=== PATIENT | male | born 1940 | race Caucasian/White ===

== ENCOUNTER 2020-11-25 16:47 | Emergency (ER) | payer MEDICARE ==
[~2020-11-25] VITALS: Ht 165.1 cm; Wt 54.4 kg
[2020-11-25 16:58] VITALS: BP 130/69
--- NOTE | 2020-11-25 17:07 | NUR ---
NASAL PACKING REPLACED BY DR MCCLELLAND,TOLERATED WELL
== END 2020-11-25 17:15 | disposition home or self-care (01) ==
LOC: ER 16:58
DX: R04.0 Epistaxis (principal); I10 Essential (primary) hypertension; Z98.890 Other specified postprocedural states; Z60.2 Problems related to living alone
CPT/HCPCS: 30901; 99284; A4217

== ENCOUNTER 2020-11-26 17:49 | Emergency (ER) | payer MEDICARE ==
[~2020-11-26] VITALS: Ht 165.1 cm; Wt 59.0 kg
[2020-11-26 18:01] VITALS: BP 141/83
--- NOTE | 2020-11-26 18:59 | NUR ---
Patient discharged to home in stable condition. Written and verbal after care instructions given. Patient verbalizes understanding of instruction.
== END 2020-11-26 18:59 | disposition home or self-care (01) ==
LOC: ER 17:56
DX: R04.0 Epistaxis (principal); I10 Essential (primary) hypertension; Z95.5 Presence of coronary angioplasty implant and graft; Z98.890 Other specified postprocedural states; Z60.2 Problems related to living alone

== ENCOUNTER 2021-01-25 20:03 | Emergency (ER) | payer MEDICARE ==
[~2021-01-25] VITALS: Ht 165.1 cm; Wt 56.7 kg
[2021-01-25 22:21] VITALS: BP 133/80
== END 2021-01-25 22:21 | disposition home or self-care (01) ==
LOC: ER 20:07
DX: S00.03XA Contusion of scalp, initial encounter (principal); S00.83XA Contusion of other part of head, initial encounter; S00.212A Abrasion of left eyelid and periocular area, initial encounter; I10 Essential (primary) hypertension; Z95.2 Presence of prosthetic heart valve; Z60.2 Problems related to living alone; W18.09XA Striking against other object with subsequent fall, initial encounter; Y93.89 Activity, other specified; Y92.89 Other specified places as the place of occurrence of the external cause; Y99.8 Other external cause status
CPT/HCPCS: 70450; 72125; 73564; 93005; 99285; L0172

== ENCOUNTER 2021-08-09 15:23 | Emergency (ER) | payer MEDICARE ==
[~2021-08-09] VITALS: Ht 165.1 cm; Wt 51.7 kg
--- NOTE | 2021-08-09 15:35 | NUR ---
BIB SELF C/O HEAD LAC AND FOREHEAD ABRASION S/P TRIP AND FALL. PT AAOX3, VSS. RR EVEN & UNLABORED. DENIES CP, SOB, DIZZINESS, N/V AT THIS TIME. AWAITING EVAL BY ULYSSES. WILL CONT TO MONITOR.
--- NOTE | 2021-08-09 15:37 | NUR ---
DR. AHUJA AT BS FOR MARCOAL.
--- NOTE | 2021-08-09 16:15 | NUR ---
PT BACK FROM CT VIA [facility].
--- NOTE | 2021-08-09 17:07 | NUR ---
CALLED [facility] FOR A READ.
--- NOTE | 2021-08-09 17:48 | NUR ---
Patient discharged to home in stable condition. Written and verbal after care instructions given. Patient verbalizes understanding of instruction. Patient ambulatory with a steady gait.
[2021-08-09 17:51] VITALS: BP 132/67
== END 2021-08-09 17:52 | disposition home or self-care (01) ==
LOC: ER 15:26
DX: S01.81XA Laceration without foreign body of other part of head, initial encounter (principal); I10 Essential (primary) hypertension; E78.5 Hyperlipidemia, unspecified; Z98.890 Other specified postprocedural states; Z60.2 Problems related to living alone; W01.0XXA Fall on same level from slipping, tripping and stumbling without subsequent striking against object, initial encounter; Y93.89 Activity, other specified; Y92.89 Other specified places as the place of occurrence of the external cause; Y99.8 Other external cause status
CPT/HCPCS: 70450-TC; 70486-TC; 72125-TC

== ENCOUNTER 2021-09-08 07:24 | Emergency (ER) | payer MEDICARE ==
[~2021-09-08] VITALS: Ht 165.1 cm; Wt 50.8 kg
--- NOTE | 2021-09-08 07:39 | NUR ---
DR VELAZQUEZ AT BEDSIDE FOR EVAL
--- NOTE | 2021-09-08 07:50 | NUR ---
SALINE LOCK ESTABLISHED BLOOD DRAWN AND SENT TO LAB
[2021-09-08 08:08] LABS: BASOPHILS % (AUTO) 0.2 % (0.0-2.0); EOSINOPHILS % (AUTO) 0.1 % (0.0-6.0); HEMATOCRIT 39 % (39-51); LYMPHOCYTES # (AUTO) 0.5 K/uL (0.8-4.8); LYMPHOCYTES % (AUTO) 4.3 % (20.0-44.0); MEAN CORPUSCULAR HGB CONC 33 g/dl (31.0-36.0); MEAN CORPUSCULAR VOLUME 94 fL (80-96); MONOCYTES # (AUTO) 0.6 K/uL (0.1-1.30); MONOCYTES % (AUTO) 5.1 % (2.0-12.0); NEUTROPHILS # (AUTO) 9.9 K/uL (1.8-8.9); NEUTROPHILS % (AUTO) 90.3 % (43.0-81.0); PLATELET COUNT (AUTO) 276 K/uL (150-450); RED BLOOD CELL COUNT(AUTO) 4.18 MIL/uL (4.5-6.0)
[2021-09-08 08:21] LABS: BILIRUBIN,DIRECT 0.1 mg/dL (0.0-0.2); BILIRUBIN,TOTAL 0.5 mg/dL (0.2-1.0); CALCIUM, SERUM 9.2 mg/dL (8.5-10.1); POTASSIUM 3.7 mmol/L (3.5-5.1)
[2021-09-08] MEDS ORDERED: IV NS 0.9% 250 ML IV ONE ×2 (08:44→09:59)
[2021-09-08] MEDS ORDERED: CT SWABBABLE VALVE TRANS SET 1 EA INFUS.SET MC ONE ×2 (08:44→09:59)
[2021-09-08] MEDS ORDERED: IOHEXOL-350 100 ML VIAL IV ONE (08:44)
--- NOTE | 2021-09-08 08:44 | NUR ---
TAKEN TO CT
[2021-09-08] MEDS ORDERED: LACTULOSE 10 G/15 ML UDC (PYXIS) PO ONE (09:30)
[2021-09-08] MEDS ORDERED: LACTULOSE 10 G/15 ML UDC (PYXIS) ONE (09:36)
[2021-09-08] MEDS ORDERED: IOHEXOL-300 100 ML VIAL IV ONE (09:59)
--- NOTE | 2021-09-08 10:51 | NUR ---
TAKEN TO CT
[2021-09-08] MEDS ORDERED: DOCU-141 PO (11:52)
--- NOTE | 2021-09-08 12:02 | NUR ---
IV removed. Catheter intact and site benign. Pressure and 4x4 applied to site. No bleeding noted.Patient discharged to home in stable condition. Written and verbal after care instructions given. Patient verbalizes understanding of instruction.
[2021-09-08 12:16] VITALS: BP 132/76
== END 2021-09-08 12:17 | disposition home or self-care (01) ==
LOC: ER 07:26
DX: R91.8 Other nonspecific abnormal finding of lung field (principal); K59.00 Constipation, unspecified; I10 Essential (primary) hypertension; Z98.890 Other specified postprocedural states; Z60.2 Problems related to living alone
CPT/HCPCS: 36415; 71270; 74177; 80048; 80076; 83690; 85025; 99285; J7050 ×2; Q9967 ×2

== ENCOUNTER 2022-01-02 17:46 | Emergency (ER) | payer MEDICARE ==
[~2022-01-02] VITALS: Ht 167.6 cm; Wt 54.0 kg
[~2022-01-02 17:46] MED LIST: DOCU-141 PO
[2022-01-02] MEDS ORDERED: LOSA50TA39 PO (18:01)
[2022-01-02] MEDS ORDERED: LOVA40TA2 PO (18:01)
[2022-01-02] MEDS ORDERED: HYDR-4209 PO (20:03)
[2022-01-02] MEDS ORDERED: IBUP-1957 PO (20:03)
--- NOTE | 2022-01-02 20:33 | NUR ---
PATIENT DISCHARGED INSTRUCTIONS GIVEN. DC IN STABLE CONDITION, PT AMBULATED TO WAITING ROOM
[2022-01-02 20:35] VITALS: BP 138/66
== END 2022-01-02 20:36 | disposition home or self-care (01) ==
LOC: ER 18:46
DX: S22.20XA Unspecified fracture of sternum, initial encounter for closed fracture (principal); I10 Essential (primary) hypertension; R26.81 Unsteadiness on feet; Z95.4 Presence of other heart-valve replacement; Z79.1 Long term (current) use of non-steroidal anti-inflammatories (NSAID); Z79.891 Long term (current) use of opiate analgesic; Z79.899 Other long term (current) drug therapy; Z60.2 Problems related to living alone; V89.2XXA Person injured in unspecified motor-vehicle accident, traffic, initial encounter; Y93.89 Activity, other specified; Y92.89 Other specified places as the place of occurrence of the external cause; Y99.8 Other external cause status
CPT/HCPCS: 71250-TC

== ENCOUNTER 2022-02-15 16:25 | Emergency (ER) | payer MEDICARE ==
[~2022-02-15] VITALS: Ht 170.2 cm; Wt 55.8 kg
[~2022-02-15 16:25] MED LIST changes: +HYDR-4209 PO; +IBUP-1957 PO; +LOSA50TA39 PO; +LOVA40TA2 PO
[2022-02-15 16:34] VITALS: BP 118/67
--- NOTE | 2022-02-15 17:02 | NUR ---
AT BEDSIDE FOR EVAL.
--- NOTE | 2022-02-15 17:21 | NUR ---
ARRANGED BLS TRANSPORT TO HOME. SPOKE WITH [facility] AND ETA IS 60 MIN.
--- NOTE | 2022-02-15 18:35 | NUR ---
PICKED UP BY TRANSPORT IN STABLE CONDITION
== END 2022-02-15 18:37 | disposition home or self-care (01) ==
LOC: ER 16:27
DX: S61.411A Laceration without foreign body of right hand, initial encounter (principal); S00.03XA Contusion of scalp, initial encounter; I10 Essential (primary) hypertension; Z95.4 Presence of other heart-valve replacement; Z79.891 Long term (current) use of opiate analgesic; Z79.1 Long term (current) use of non-steroidal anti-inflammatories (NSAID); Z79.899 Other long term (current) drug therapy; W01.0XXA Fall on same level from slipping, tripping and stumbling without subsequent striking against object, initial encounter; Y93.89 Activity, other specified; Y92.89 Other specified places as the place of occurrence of the external cause; Y99.8 Other external cause status

== ENCOUNTER 2022-02-18 18:58 | Inpatient (IN) | payer MEDICARE ==
[~2022-02-18] VITALS: Ht 170.2 cm; Wt 51.3 kg
--- NOTE | 2022-02-18 19:10 | NUR ---
TO ER BED 2. BIBRA FROM HOME C/O L ARM PAIN POST FALL X YESTERDAY MORNING. PT WAS UNABLE TO CALL FOR HELP, LIVES ALONE. NEIGHBOR FOUND HIM ON THE FLOOR. DIFORMITY NOTED ON L ARM. PT IS ABLE TO MOVE ALL FINGERS, DENIED NUMBNESS. AWAITING MD HUERTA
--- NOTE | 2022-02-18 19:38 | NUR ---
PT TAKEN FOR XRAY
--- NOTE | 2022-02-18 19:58 | NUR ---
COVID ANTIGEN SWAB COLLECTED AND SENT TO LAB
--- NOTE | 2022-02-18 20:58 | NUR ---
CALLED [facility] PAGED DR RUIZ FOR ADMISSION
--- NOTE | 2022-02-18 21:39 | NUR ---
DR. LAKE SPEAKING TO DR. RUIZ VIA PHONE CALL
--- NOTE | 2022-02-18 21:45 | NUR ---
CALLED DR HOLGUIN FOR ORTHO CONSULT
--- NOTE | 2022-02-18 22:11 | NUR ---
LAB AT BEDSIDE
--- NOTE | 2022-02-18 22:15 | NUR ---
IV LINE ESTABLISHED RAC 20G
--- NOTE | 2022-02-18 22:16 | NUR ---
MS 310-2
[2022-02-18 22:20] LABS: BASOPHILS % (AUTO) 0.1 % (0.0-2.0); EOSINOPHILS % (AUTO) 0.1 % (0.0-6.0); HEMATOCRIT 39 % (39-51); LYMPHOCYTES # (AUTO) 0.4 K/uL (0.8-4.8); LYMPHOCYTES % (AUTO) 6.8 % (20.0-44.0); MEAN CORPUSCULAR HGB CONC 33 g/dl (31.0-36.0); MEAN CORPUSCULAR VOLUME 91 fL (80-96); MONOCYTES # (AUTO) 0.3 K/uL (0.1-1.30); MONOCYTES % (AUTO) 5.1 % (2.0-12.0); NEUTROPHILS # (AUTO) 5.1 K/uL (1.8-8.9); NEUTROPHILS % (AUTO) 87.9 % (43.0-81.0); PLATELET COUNT (AUTO) 227 K/uL (150-450); RED BLOOD CELL COUNT(AUTO) 4.27 MIL/uL (4.5-6.0); WHITE BLOOD COUNT (AUTO) 5.7 K/uL (4.3-11.0)
--- NOTE | 2022-02-18 22:40 | NUR ---
REPORT GIVEN TO LEO ALFARO FOR MIGUEL
[2022-02-18 22:59] LABS: CALCIUM, SERUM 9.1 mg/dL (8.5-10.1); CARBON DIOXIDE 30 mmol/L (21-32); CHLORIDE 103 mmol/L (98-107); CREATININE 0.6 mg/dL (0.6-1.3); GLUCOSE 150 mg/dL (74-106); POTASSIUM 3.3 mmol/L (3.5-5.1); SODIUM SERUM 138 mmol/L (136-145); UREA NITROGEN, BLOOD 22 mg/dL (7-18)
[2022-02-18] MEDS ORDERED: ONDANSETRON HCL/PF 4 MG/2 ML VIAL IVP PRN (23:30)
[2022-02-18] MEDS ORDERED: ACETAMINOPHEN 325 MG TABLET PO PRN (23:30)
[2022-02-18] MEDS ORDERED: Z GUARD REMEDY 4 OZ OINT TP PRN (23:30)
[2022-02-18] MEDS ORDERED: MAG HYDROX/AL HYDROX/SIMETH 30 ML UDC PO PRN (23:30)
[2022-02-18] MEDS ORDERED: ZOLPIDEM TARTRATE 5 MG TABLET PO PRN (23:30)
[2022-02-18] MEDS ORDERED: MORPHINE SULFATE INJ 2 MG/ML DISP.SYRIN IV PRN (23:30)
[2022-02-18] MEDS ORDERED: MAGNESIUM HYDROXIDE 30 ML UDC PO PRN (23:30)
[2022-02-18] MEDS ORDERED: HYDROCODONE/APAP 5/325MG TABLET PO PRN (23:30)
[2022-02-18] MEDS ORDERED: IV NS 0.9% 1,000 ML IV ONE (23:30)
[2022-02-18] MEDS ORDERED: POTASSIUM CL. PREMIX PERIPHER. 50 ML ONE (23:32)
[2022-02-19 01:00] VITALS: BP 136/70
[2022-02-19] MEDS: POTASSIUM CL. PREMIX PERIPHER. 50 ML IV SCH ×4 (01:19→05:04)
--- NOTE | 2022-02-19 02:00 | NUR ---
MS RN OPENING NOTES [facility] A/O X4 WITH PERIODS OF FORGETFULNESS. NO SOB OR NOTED. TOLERATING ROOM AIR WELL. ABLE TO VERBALIZE NEEDS. V/S STABLE. LEFT SHOULDER SLING NOTED. HAS RIGHT AC IV ACCESS #20G, INTACT AND PATENT. SKIN ASSESSMENT DONE AND PHOTOS TAKEN. BELONGINGS ACCOUNTED FOR. SAFETY MEASURES IN PLACE: BED LOW AND LOCKED, SIDE RAILS UP X2, CALL LIGHT WITHIN REACH.
[2022-02-19 03:09] LABS: IRON, SERUM 31 ug/dl (50-175); TOTAL IRON BINDING CAPACITY 224 ug/dl (250-450)
[2022-02-19 03:23] LABS: FERRITIN 213 ng/mL (8-388)
--- NOTE | 2022-02-19 06:46 | NUR ---
MS RN CLOSING NOTES PATIENT LYING IN BED, EYES CLOSED. EASY TO AROUSE. A/O X4. STABLE ON ROOM AIR. NO APPARENT DISTRESS NOTED. LEFT SHOULDER SWELLING NOTED. HAS RIGHT AC IV ACCESS #20G WITH NS RUNNING AT 100 ML/HR. VOIDED ONCE USING URINAL BOTTLE. NO BM DURING SHIFT. WOUND CONSULT ORDERED. SURGERY CONSENT SIGNED. SAFETY MEASURES IN PLACE: BED LOW AND LOCKED, SIDE RAILS UP X2, CALL LIGHT WITHIN REACH.
[2022-02-19 08:00] VITALS: BP 138/73
--- NOTE | 2022-02-19 08:25 | NUR ---
RN OPENING NOTE PATIENT RECEIVED IN BED, AO X 4, ABLE TO RESPONDS ALL STIMULI. IN NO ACUTE DISTRESS NOTED. RESPIRATORY EVEN AND UNLABORED ON ROOM AIR. SKIN IS WARM TO TOUCH, KEEP CLEAN/DRY, INTACT IV SITE. PATIENT KEPT NPO FOR LEFT HIP SURGERY TODAY. ELEVATED HOB FOR ENSURE AIRWAY AND ASPIRATION PRECAUTION, ALSO LOWEST POSITION OF THE BED, S/R UP X 3 FOR SAFETY. ALL SAFETY PRECAUTION APPLIED. CALL LIGHT WITHIN REACH, WILL CONTINUE TO MONITOR.
[2022-02-19] MEDS: LOSARTAN POTASSIUM 50 MG TABLET PO SCH ×2 (09:00→17:00)
[2022-02-19] MEDS: IBUPROFEN 400 MG TABLET PO SCH ×3 (09:00→17:22)
[2022-02-19] MEDS: DOCUSATE SODIUM 100 MG CAPSULE PO SCH ×2 (09:00→17:22)
[2022-02-19] MEDS ORDERED: IBUPROFEN 800 MG TABLET PO SCH (09:00)
[2022-02-19] MEDS: ATORVASTATIN 10 MG TABLET PO SCH (09:00)
[2022-02-19 11:56] LABS: BASOPHILS % (AUTO) 0.4 % (0.0-2.0); EOSINOPHILS % (AUTO) 1.6 % (0.0-6.0); HEMATOCRIT 33 % (39-51); HEMOGLOBIN 10.7 g/dL (13.5-17.5); LYMPHOCYTES # (AUTO) 0.6 K/uL (0.8-4.8); LYMPHOCYTES % (AUTO) 19.2 % (20.0-44.0); MEAN CORPUSCULAR HGB CONC 32 g/dl (31.0-36.0); MEAN CORPUSCULAR VOLUME 93 fL (80-96); MONOCYTES # (AUTO) 0.2 K/uL (0.1-1.30); MONOCYTES % (AUTO) 7.8 % (2.0-12.0); NEUTROPHILS # (AUTO) 2.3 K/uL (1.8-8.9); PLATELET COUNT (AUTO) 176 K/uL (150-450); RED BLOOD CELL COUNT(AUTO) 3.57 MIL/uL (4.5-6.0); WHITE BLOOD COUNT (AUTO) 3.2 K/uL (4.3-11.0)
[2022-02-19] MEDS ORDERED: FENTANYL PF 250MCG/5ML AMPUL ONE (13:01)
[2022-02-19] MEDS ORDERED: ROCURONIUM BROMIDE 50 MG/5 ML ONE (13:02)
[2022-02-19] MEDS ORDERED: POLYMYXIN B SULFATE 500,000 UNITS ONE (13:26)
[2022-02-19] MEDS ORDERED: BUPIVACAINE 0.5 % PF 150 MG/30 ML VIAL ONE (13:26)
[2022-02-19 13:59] LABS: CALCIUM, SERUM 8.5 mg/dL (8.5-10.1); CARBON DIOXIDE 26 mmol/L (21-32); CHLORIDE 107 mmol/L (98-107); CREATININE 0.4 mg/dL (0.6-1.3); GLUCOSE 77 mg/dL (74-106); MAGNESIUM 2.2 mg/dL (1.8-2.4); PHOSPHORUS 2.6 mg/dL (2.5-4.9); POTASSIUM 3.6 mmol/L (3.5-5.1); SODIUM SERUM 138 mmol/L (136-145); UREA NITROGEN, BLOOD 17 mg/dL (7-18)
[2022-02-19] MEDS ORDERED: BUPIVACAINE 0.25% 75 MG/30 ML VIAL ONE (14:22)
[2022-02-19 14:52] LABS: CHOLESTEROL 127 mg/dL (<200); HDL CHOLESTEROL 77 mg/dL (40-60); LDL 32 mg/dL (0-99); TRIGLYCERIDES 54 mg/dL (30-150)
[2022-02-19] MEDS ORDERED: FENTANYL PF 100MCG/2ML AMPUL ONE (15:53)
[2022-02-19 16:45] VITALS: BP 123/76
--- NOTE | 2022-02-19 16:45 | NUR ---
PATIENT BACK FROM LEFT SHOULDER PROCEDURE, REPORTED BY OKSANA/RN. IN NO ACUTE DISTRESS OBSERVED. REMAINS AO X 4, DUNCAN CATH CONNECTING TO URINE BAG. VITAL SIGNS ARE ALL STABLE, DOCUMENTED IN THE INTERVENTION.
[2022-02-19 17:00] VITALS: BP 116/82
[2022-02-19 17:30] VITALS: BP 136/57
--- NOTE | 2022-02-19 18:39 | NUR ---
RN CLOSE NOTE PATIENT IN BED, S/P LEFT SHOULDER PROCEDURE, IN NO ACUTE DISTRESS OBSERVED. RESPIRATION EVEN AND UNLABORED ON ROOM AIR. SKIN IS WARM TO TOUCH KEEP CLEAN//DRY, INTACT IV SITE. KEPT ELEVATED HOB FOR ENSURE AIRWAY AND ASPIRATION PRECAUTION. ALSO LOWEST POSITION OF THE BED FOR SAFETY. CALL LIGHT WITHIN REACH, WILL CONTINUE TO MONITOR.
--- NOTE | 2022-02-19 19:45 | NUR ---
MS ANGELINA OPENING NOTES RECEIVED PATIENT IN BED, HOB ELEVATED WHILE EATING HIS DINNER. A/O X4 WITH PERIODS OF CONFUSION. BREATHING EVEN AND UNLABORED. NO C/O PAIN AT THIS TIME. S/P LEFT SHOULDER ORIF WITH INTRAMEDULLARY NAIL. DRESSING DRY AND INTACT. HAS RIGHT AC IV ACCESS #20G SALINE LOCK. INTACT, PATENT AND FLUSHING. HAS INDWELLING DUNCAN CATHETER DRAINING CLEAR AND YELLOW URINE. SAFETY PRECAUTIONS IN PLACE. WILL CONTINUE PLAN OF CARE. Addendum: 02/20/22 at 0132 by April FABIÁN ALFARO NO F/C
[2022-02-19 20:00] VITALS: BP 113/64
[2022-02-19] MEDS: ENOXAPARIN SODIUM 40 MG/0.4 ML DISP.SYRIN SQ SCH (21:39)
[2022-02-19] MEDS: ANCEF 1 GM/50 ML D5W IV SCH ×2 (21:40)
[2022-02-20] MEDS: ANCEF 1 GM/50 ML D5W IV SCH ×2 (05:16)
--- NOTE | 2022-02-20 06:20 | NUR ---
MS RN CLOSING NOTES PATIENT LYING IN BED, EYES CLOSED. RESPONSIVE TO VERBAL AND TACTILE STIMULI. A/O X4 WITH PERIODS OF FORGETFULNESS. NO C/O PAIN AT THIS TIME. NO APPARENT DISTRESS NOTED. MOOD IS PLEASANT. LEFT SHOULDER DRESSING DRY AND INTACT. HAS RIGHT AC IV ACCESS #20G SALINE LOCK. INTACT, PATENT AND FLUSHING. PERINEAL CARE RENDERED. SAFETY PRECAUTIONS IN PLACE: BED LOCK AND LOW, SIDE RAILS UP X2, CALL LIGHT WITHIN REACH.
[2022-02-20 06:43] LABS: BASOPHILS % (AUTO) 0.1 % (0.0-2.0); EOSINOPHILS % (AUTO) 0.9 % (0.0-6.0); HEMATOCRIT 27 % (39-51); HEMOGLOBIN 9.3 g/dL (13.5-17.5); LYMPHOCYTES # (AUTO) 0.4 K/uL (0.8-4.8); LYMPHOCYTES % (AUTO) 13.1 % (20.0-44.0); MEAN CORPUSCULAR HGB CONC 34 g/dl (31.0-36.0); MEAN CORPUSCULAR VOLUME 91 fL (80-96); MONOCYTES # (AUTO) 0.3 K/uL (0.1-1.30); MONOCYTES % (AUTO) 8.1 % (2.0-12.0); NEUTROPHILS # (AUTO) 2.5 K/uL (1.8-8.9); NEUTROPHILS % (AUTO) 77.8 % (43.0-81.0); PLATELET COUNT (AUTO) 164 K/uL (150-450); RED BLOOD CELL COUNT(AUTO) 3.01 MIL/uL (4.5-6.0); WHITE BLOOD COUNT (AUTO) 3.2 K/uL (4.3-11.0)
[2022-02-20 06:59] LABS: ALBUMIN 1.9 g/dL (3.4-5.0); BILIRUBIN,TOTAL 0.3 mg/dL (0.2-1.0); CALCIUM, SERUM 8.1 mg/dL (8.5-10.1); CREATININE 0.7 mg/dL (0.6-1.3); MAGNESIUM 1.9 mg/dL (1.8-2.4); PHOSPHORUS 2.5 mg/dL (2.5-4.9); POTASSIUM 3.6 mmol/L (3.5-5.1)
--- NOTE | 2022-02-20 07:15 | NUR ---
MS RN OPENING NOTES RECEIVED PATIENT LYING IN BED, AWAKE AND RESPONSIVE TO VERBAL AND TACTILE STIMULI. MOOD IS PLEASANT. A/O X4. PATIENT ON ROOM AIR WITH EQUAL AND UNLABORED BREATHING. NO S/S OF DISTRESS NOTED. NO C/O PAIN AT THIS TIME. LEFT SHOULDER DRESSING DRY AND INTACT. HAS RIGHT AC IV ACCESS #20G SALINE LOCK; CLEAR PATENT AND INTACT. SAFETY MEASURES ENSURED WITH BED LOCKED AND LOWEST POSITION, SIDE RAILS UP X2, BED ALARM ON AND CALL LIGHT WITHIN REACH. WILL CONTINUE TO MONITOR.
[2022-02-20 08:41] VITALS: BP 102/64
[2022-02-20] MEDS: DOCUSATE SODIUM 100 MG CAPSULE PO SCH ×2 (08:47→17:19)
[2022-02-20] MEDS: ATORVASTATIN 10 MG TABLET PO SCH (08:47)
[2022-02-20] MEDS: IBUPROFEN 400 MG TABLET PO SCH ×3 (08:47→17:18)
[2022-02-20] MEDS: LOSARTAN POTASSIUM 50 MG TABLET PO SCH ×2 (08:47→17:19)
--- NOTE | 2022-02-20 10:49 | NUR ---
WOUND CARE CONSULT: PT PRESENTS VERY THIN AND BONY WITH SACRAL AND LOWER BACK DEEP TISSUE INJURIES WELL SKIN TEAR TO LEFT ELBOW WITH DISCOLORATION AND SWELLING TO LEFT UPPER EXTREMITY, PRESENT ON ADMISSION. SURGICAL DRESSING NOTED TO LEFT SHOULDER (DRY AND INTACT). RECOMMENDATIONS MADE FOR SKIN PROTECTION AND WOUND CARE. DISCUSSED WITH NURSING STAFF. DR LO CALLED FOR PLASTIC SURGERY CONSULT OF WOUNDS. IN AGREEMENT WITH PLAN OF CARE. Addendum: 02/20/22 at 1051 by TRUONG ELIZALDE WNDNU Amended: Links added.
--- NOTE | 2022-02-20 14:57 | NUR ---
SS Consult: SS consult for fall from home. Pt. Is a 81-year-old White male who demonstrates adequate insight to the reason for hospitalization. Per pt., he presented himself to hospital for fall. Pt. was oriented x4, alert, and cooperative. During interview, pt. was capable of following directions, made appropriate eye-contact, and appeared unkempt. Pt.s speech was at a normal rate and pt.s mood was elevated. Pt. reported no hx of mental health, substance abuse, suicidal ideation, or homicidal ideation. Pt. denies auditory hallucinations, visual hallucinations, paranoia, or delusions. SW explored pt.s living situation. Per pt., he lives alone [[address] [place] [address], tele:[phone]]. Per pt., he has no family, friends, or a caregiver. Pt. stated that he is independent. SW explored pt.s recent fall. Pt. reported he does not recall how the fall happened. Pt. remembered being on the floor and could not get up. He said he was on the floor for the whole day and could not pull himself up. He finally got to the front door and yelled for help, his neighbor saw and called ambulance. Pt. has hx of falls. Plan: SW provided available resources and pt. accepted. SW made an APS report for self-neglect. APS Intake #[id number] Resources Provided: ABUSE PREVENTION: ELDER ABUSE HOTLINE (14/06) ADULT PROTECTIVE SERVICES HOTLINE LONG-TERM CARE [facility] Region AREA ON AGING (HOTLINE) ADULT DAY HEALTH CARE CARE CENTERS: Private pay or Medi-farhat funded adult day care [place] [facility] , [facility] , [facility] Adult Care Center , [facility] Adult Day Health Care , [facility] Adult Day Health Care , Located Within [facility] Adult Daycare Center , Reliance ONE Generation Center , [facility] Adult [facility] , [place] ALZHEIMERS DISEASE/DEMENTIA: Alzheimers Association Helpline [facility] Chapter www.alz.org/[facility] Department of Aging www.lacity.org Family Caregiver [place] www.caregiver.org [place] Caregiver Resources Center/Family Support www.losangesaint elizabeth fort thomas.org CANCER RESOURCES: [place] Cancer Society www.cancer.org Cancer Support Community www.CancerSupportVvsb.org: CancerCare www.cancercare.org [facility] [place] Cancer Support Center www.[facility].org [facility] ASSOCIATIONS: AARP www.aarp.org ALS Association (ask for Lucretia) www.als.org [place] Diabetes Association www.diabetes.org [place] Heart Association www.heart.org Croat[place] Lung Association www.lungusa.org Croat[place] Parkinson Disease Association www.apdaparkinson.org Croatian Tim[place]on , www.redcross.org Arthritis Foundation www.arthritis.org Crohns & Colitis Foundation of Croatian www.ccfa.org/chapters/tessy National Multiple Sclerosis Society www.nationalmssociety.org Myasthenia Gravis Foundation www.myasthenia-ca.org National Stroke Association www.stroke.org CONSERVATORSHIP & GUARDIANSHIP: AARP Aretha [place] Legal Services Center for Health Care Rights Eldercare Information and Referral Youth Services Specialist Foundation [facility]: [facility] Bar Referral Service [facility] Legal Services Office of the Public Guardian [place] EYESIGHT DISORDER RESOURCES: [place]ian Macular Degeneration Foundation [facility] www.[facility].org GRIEF AND BEREAVEMENT RESOURCES: The [place] , [facility] Connection , [facility] Bereavement Center , [place] HEARING DISORDER RESOURCES: [place] Telephone Access Program Deaf and Disabled Telecommunications Program www.ddtp.[facility].ca.gov HearRx Hearing Centers ([place]) Better Hearing Systems , [place] GLAD ([facility] Agency on Deafness) V/ TTY; Drive Thru Order Taker , [facility] Hearing [facility] -low income hearing aid assistance www.[facility] regional hospitalfoundation.org [place] Hearing Care , Tesfaye HELP AT HOME CAREGIVER SUPPORT: In Home Support Services (Must have Medi-Farhat to be eligible) *Ask for a list of agencies that provide services to assist with care in the home. Local Senior Centers also have listings of care providers. HOME SAFETY MODIFICATIONS AND EQUIPMENT: Senior centers have additional referrals. [place] Housing and Community Investment Dept. Handyworker Program (low income) or Visit http://hcidla.[facility].org/yve-zggtei-hx for more information National Seating and Mobility and/or ; Forever Active www.foreveractivemed.Smarkets Stay Home Safe www.Stayhomesafe.Smarkets LIFE ALERT RESPONSE SYSTEM: CHARMS PPEC Lifeline Services 272-247-7002 www. DataContact Life Alert 832-631-4054 www.InvestLab.Smarkets Life Station 449-712-5165 www.CardMunchation.Smarkets Safe Return 099-612-1186 www.alz.or/safereturn Cell Phones for Seniors www.eyeOS MEALS AND FOOD PROGRAMS: Tiffany Meals on Wheels [phone] [place] Meals on Wheels [phone] [facility] [phone] [place] to the Homebound [phone] [place] to the Homebound [phone] [facility] to the Homebound [phone] [facility] to the Homebound [phone] [facility] Petar Yan [phone] [facility] [phone] ONE Generation [phone] [facility] [phone] [facility] [phone] Meals on Wheels [phone] For all ages: $6.85/ meal w side. Delivered M-F from 10 am-1pm. Application and payment is done over the phone. Frozen meals available for weekends. Emergency Food Coalition [phone] [facility] Wreath Machine Tender [phone] [facility] [phone] [facility]- Brown bag lunches [phone] [facility] [phone] MEAL/GROCERY DELIVERY PROGRAMS: Randy [facility] Gourmet Meals [phone]- [facility] [phone]- [facility] Magic Kitchen [phone] Moms Meals [phone] (ask Robles for Discount Select grocery stores may provide delivery. MEDICAL INSURANCE SUPPORT SERVICES: Center for Health Care Rights [phone] Health Insurance Counseling/Advocacy Programs (HICAP)-Must have Medicare. Offers counseling for Medi-Farhat eligibility [phone] Department Public Wreath Machine Tender [phone] www.[facility].ca.gov Medicare 500-479-7308 www.socialsecurity.org Social Security [phone] SENIOR ACTIVITY PROGRAMS: *Contact a local senior center, adult school, recreation facility or community [facility] for education, fitness, recreation, and social programs. Aquatic Therapy and Adapted Exercise programs through [facility] [phone] Encore at [facility] [phone] www.[facility]/encore U- Senior Friends [phone] Adeline Senior Programs [phone] www.oasisnet.org Suddenly 65 www.Millennium Laboratories.Smarkets SENIOR CENTERS: [facility] [phone] [facility] [place] [phone] [facility] [phone] [facility] [phone] [facility] [phone] [facility] [phone] [facility] [phone] [facility] [phone] One Generation, [facility] [phone] [facility] [phone] [facility] [phone] [facility] [phone] [facility] [phone] TRANSPORTATION: Local [facility] Centers may have applications for transportation programs and additional resources. ACCESS Services [phone] Transportation for seniors and disabled persons 7 days a week requiring 254 hr. advance reservation. Must apply and register for program alexi eligible. CITY RIDE [phone] or [phone] Transportation for seniors and persons with ADA card/metro disabled card in the [facility] [place]. M-F only. Must register for services. ONE GENERATION [phone] Serves 65 years + in conjunction with city ride program. Must be registered with both programs. A to B Transport [phone] Provides wheelchair/gurney van service. Adult Medical Transport [phone] Accepts [facility] with prior authorization. Care Van [phone] Provides wheelchair Transport. [facility] Wide Transportation [phone] Provides gurney service Gentle Care [phone] Gurney Transport. All Town Transportation [phone] wheelchair & gurney transport D Transportation [phone] wheelchair & gurney transport [place] Non-Emergency Transport [phone] wheelchair & gurney transport Independent Living Center [phone] Short Term Transportation primarily for adults with disabilities on social security income. Nominal fee may apply and a reservation is required. City Cab [phone] or [phone] [facility] [phone] [place] [address] Referral Services -[phone] For additional programs & services VETERANS RESOURCES: Submissions for Aid and Attendance should be done directly to Federal VA office locatd at : [address] [address] X110 National Caregiver Support Line [phone] Farhat L[facility] Veterans Services Field Office [phone] [place] Department of Affairs [phone] Pension Information [phone]
[2022-02-20] MEDS: ENSURE ENLIVE CHOC 237 ML CAN PO SCH (17:00)
--- NOTE | 2022-02-20 18:46 | NUR ---
MS RN CLOSING NOTES PATIENT LYING IN BED, AWAKE AND RESPONSIVE TO VERBAL AND TACTILE STIMULI. MOOD IS PLEASANT. A/O X4. PATIENT ON ROOM AIR WITH EQUAL AND UNLABORED BREATHING. NO S/S OF DISTRESS NOTED. NO C/O PAIN AT THIS TIME. LEFT SHOULDER DRESSING DRY AND INTACT. HAS RIGHT AC IV ACCESS #20G SALINE LOCK; CLEAR PATENT AND INTACT. WILL ENDORSED TO RETAIL SALES SPECIALIST FOR CONTINUITY OF CARE.
--- NOTE | 2022-02-20 19:20 | NUR ---
MS RN OPENING NOTES PATIENT LYING IN BED, AWAKE AND RESPONSIVE TO VERBAL AND TACTILE STIMULI. MOOD IS PLEASANT. A/O X4. PATIENT ON ROOM AIR WITH EQUAL AND UNLABORED BREATHING. NO S/S OF DISTRESS NOTED. NO C/O PAIN AT THIS TIME. LEFT SHOULDER DRESSING DRY AND INTACT. HAS RIGHT AC IV ACCESS #20G SALINE LOCK; CLEAR PATENT AND INTACT. WILL CONTINUE TO MONITOR.
[2022-02-20 19:56] VITALS: BP 104/48
[2022-02-20] MEDS: ENOXAPARIN SODIUM 40 MG/0.4 ML DISP.SYRIN SQ SCH (20:45)
[2022-02-21 06:50] LABS: BASOPHILS % (AUTO) 0.1 % (0.0-2.0); EOSINOPHILS % (AUTO) 2.1 % (0.0-6.0); HEMATOCRIT 29 % (39-51); LYMPHOCYTES # (AUTO) 0.4 K/uL (0.8-4.8); LYMPHOCYTES % (AUTO) 9.8 % (20.0-44.0); MEAN CORPUSCULAR HGB CONC 34 g/dl (31.0-36.0); MEAN CORPUSCULAR VOLUME 91 fL (80-96); MONOCYTES # (AUTO) 0.3 K/uL (0.1-1.30); MONOCYTES % (AUTO) 7.3 % (2.0-12.0); NEUTROPHILS % (AUTO) 80.7 % (43.0-81.0); PLATELET COUNT (AUTO) 173 K/uL (150-450); RED BLOOD CELL COUNT(AUTO) 3.21 MIL/uL (4.5-6.0); WHITE BLOOD COUNT (AUTO) 3.7 K/uL (4.3-11.0)
--- NOTE | 2022-02-21 07:03 | NUR ---
MS RN CLOSING NOTES PATIENT LYING IN BED, AWAKE AND RESPONSIVE TO VERBAL AND TACTILE STIMULI. MOOD IS PLEASANT. A/O X4. PATIENT ON ROOM AIR WITH EQUAL AND UNLABORED BREATHING. NO S/S OF DISTRESS NOTED. NO C/O PAIN AT THIS TIME. LEFT SHOULDER DRESSING IN PLACE. HAS RIGHT AC IV ACCESS #20G SALINE LOCK; CLEAR PATENT AND INTACT. WILL CONTINUE TO MONITOR.
[2022-02-21 07:24] LABS: CALCIUM, SERUM 8.1 mg/dL (8.5-10.1); CARBON DIOXIDE 25 mmol/L (21-32); CHLORIDE 106 mmol/L (98-107); CREATININE 0.5 mg/dL (0.6-1.3); GLUCOSE 102 mg/dL (74-106); MAGNESIUM 1.9 mg/dL (1.8-2.4); PHOSPHORUS 2.1 mg/dL (2.5-4.9); POTASSIUM 3.9 mmol/L (3.5-5.1); SODIUM SERUM 138 mmol/L (136-145); UREA NITROGEN, BLOOD 18 mg/dL (7-18)
--- NOTE | 2022-02-21 07:39 | NUR ---
MS RN OPENING NOTE RECEIVED PATIENT AWAKE IN BED. A/O X 4, ABLE TO MAKE NEEDS KNOWN. NO S/SX OF DISTRESS NOTED. NO SOB. NO C/O PAIN. BREATHING IS EVEN AND UNLABORED. PT TOLERATING WELL ON ROOM AIR. IV ACCESS R AC #20G PATENT AND INTACT WITH NS RUNNING AT 75MLS/HR. SAFETY MEASURES IN PLACE WITH BED LOCKED IN LOW POSITION. SIDE RAILS UP X2. WILL CONTINUE TO MONITOR PATIENT THROUGHOUT SHIFT.
[2022-02-21 07:51] LABS: ALANINE AMINOTRANSFERASE 30 U/L (12-78); ALKALINE PHOSPHATASE 72 U/L (46-116); ASPARTATE AMINOTRANSFERASE 21 U/L (15-37); BILIRUBIN,TOTAL 0.4 mg/dL (0.2-1.0); TOTAL PROTEIN, SERUM 4.5 g/dL (6.4-8.2)
[2022-02-21 08:00] VITALS: BP 115/58
[2022-02-21] MEDS: LOSARTAN POTASSIUM 50 MG TABLET PO SCH ×2 (08:11→16:47)
[2022-02-21] MEDS: ATORVASTATIN 10 MG TABLET PO SCH (08:12)
[2022-02-21] MEDS: DOCUSATE SODIUM 100 MG CAPSULE PO SCH ×2 (08:12→16:46)
[2022-02-21] MEDS: IBUPROFEN 400 MG TABLET PO SCH ×3 (08:12→16:46)
[2022-02-21] MEDS: ENSURE ENLIVE CHOC 237 ML CAN PO SCH ×2 (08:13→16:47)
[2022-02-21] MEDS ORDERED: K PHOS NEUTRAL 250 MG TABLET PO ONE (16:30)
[2022-02-21 16:47] VITALS: BP 108/53
--- NOTE | 2022-02-21 17:30 | NUR ---
MS TRUCK SALES REPRESENTATIVE NOTE PT WAS DISCHARGED WITH STABLE VITAL SIGNS. A/O X 4. NO S/SX OF DISTRESS NOTED. NO SOB. BREAHTING IS EVEN AN UNLABORED. DC INSTRUCTIONS REVIEWED WITH PATIENT AND SIGNED FORM. ALL BELONGINGS RETURNED TO PATIENT WITH FORM SIGNED. ALL QUESTIONS ANSWERED; VERBALIZED UNDERSTANDING. ID BAND AND IV ACCESS REMOVED. PT WAS PICKED UP BY AMBULANCE VIA GURNEY. OBSERVED PATIENT LEAVE THIS UNIT AT THIS TIME. REPORT GIVEN TO VALENTINO AT [facility].
== END 2022-02-21 18:00 | DRG 492 ==
LOC: ER 19:00 → MED 22:22
PROVIDERS: ADMIT Family Medicine
PROC: 0PSD06Z Reposition Left Humeral Head with Intramedullary Internal Fixation Device, Open Approach (ICD-10-PCS; principal; 2022-02-19)
DX: S42.352A Displaced comminuted fracture of shaft of humerus, left arm, initial encounter for closed fracture (principal); E43 Unspecified severe protein-calorie malnutrition; R64 Cachexia; Z68.1 Body mass index [BMI] 19.9 or less, adult; Y92.009 Unspecified place in unspecified non-institutional (private) residence as the place of occurrence of the external cause; E87.6 Hypokalemia; E86.9 Volume depletion, unspecified; E78.5 Hyperlipidemia, unspecified; W01.0XXA Fall on same level from slipping, tripping and stumbling without subsequent striking against object, initial encounter; S42.202A Unspecified fracture of upper end of left humerus, initial encounter for closed fracture; E86.0 Dehydration; I10 Essential (primary) hypertension; I48.91 Unspecified atrial fibrillation; Z91.81 History of falling; Z95.2 Presence of prosthetic heart valve; Z79.899 Other long term (current) drug therapy; D64.9 Anemia, unspecified; D63.8 Anemia in other chronic diseases classified elsewhere; R73.9 Hyperglycemia, unspecified; R74.8 Abnormal levels of other serum enzymes; R53.1 Weakness; R91.8 Other nonspecific abnormal finding of lung field; L89.156 Pressure-induced deep tissue damage of sacral region; L89.106 Pressure-induced deep tissue damage of unspecified part of back; E88.09 Other disorders of plasma-protein metabolism, not elsewhere classified
CPT/HCPCS: 36415; 70450-TC; 71045-TC; 72125-TC; 73030-TC; 73060-TC; 73200-TC; 80048-TC; 80053-TC; 80061-TC; 82550-TC; 82553; 82728-TC; 83540-TC; 83735-TC; 84100-TC; 85025-TC; 85027-TC; 85610-TC; 93307-TC; 97112-TC; 97530-TC; A4217; A4565; A6209; A6402; A6403; C1713; C9803; G0378; J0171; J0690; J1650; J2704; J3010; J3480; J3490; J7030; J7050; J7060

== ENCOUNTER 2022-06-11 16:00 | Emergency (ER) | payer MEDICARE ==
[~2022-06-11] VITALS: Ht 170.2 cm; Wt 55.8 kg
--- NOTE | 2022-06-11 16:18 | NUR ---
BIB RA 88,LACERATION,FOREHEAD, SUSTAINED WHEN HE TRIPPED AND HIT FOREHEAD AGAINST A WALL W/ 2 NUTS STICKING OUT WHILE WORKING IN HIS GARAGE,NO LOC. RATES PAINS 5/10. WILL CONTINUE TO MONITOR THE PATIENT.
--- NOTE | 2022-06-11 16:56 | NUR ---
THE PATIENT IS TAKEN TO CT VIA RNEY
--- NOTE | 2022-06-11 17:09 | NUR ---
THE PATIENT IS BACK FROM CT VIA [facility]
--- NOTE | 2022-06-11 19:27 | NUR ---
Patient discharged to home in stable condition. Written and verbal after care instructions given. Patient verbalizes understanding of instruction. Pt ambulatory with a steady gait
--- NOTE | 2022-06-11 19:28 | NUR ---
PT WAS CALLED A CAB TRANSPORT BACK TO HIS HOME. PT DOES NOT WANT TO GO ON A CAB AND INSISTED ON WALKING HOME INSTEAD. PT IS ALERT, AWAKE ORIENTED X 4. MD WAS MADE AWARE THAT PT IS GOING BACK HOME ON FOOT.
[2022-06-11 19:30] VITALS: BP 137/85
== END 2022-06-11 19:31 | disposition home or self-care (01) ==
LOC: ER 16:05
DX: S01.81XA Laceration without foreign body of other part of head, initial encounter (principal); I10 Essential (primary) hypertension; Z60.2 Problems related to living alone; Z79.899 Other long term (current) drug therapy; W01.198A Fall on same level from slipping, tripping and stumbling with subsequent striking against other object, initial encounter; Y93.89 Activity, other specified; Y92.89 Other specified places as the place of occurrence of the external cause; Y99.8 Other external cause status
CPT/HCPCS: 99284; 72125; 12014; 70450; A6403

== ENCOUNTER 2022-06-13 15:27 | Emergency (ER) | payer MEDICARE ==
[~2022-06-13] VITALS: Ht 162.6 cm; Wt 40.8 kg
[2022-06-13 16:12] VITALS: BP 166/73
--- NOTE | 2022-06-13 17:30 | NUR ---
Sutures on forehead intact/dry. Patient discharged to home in stable condition. Written and verbal after care instructions given. Patient verbalizes understanding of instruction.
== END 2022-06-13 17:40 | disposition home or self-care (01) ==
LOC: ER 15:53
DX: S01.81XD Laceration without foreign body of other part of head, subsequent encounter (principal); I10 Essential (primary) hypertension; Z60.2 Problems related to living alone; Z79.899 Other long term (current) drug therapy; W18.30XD Fall on same level, unspecified, subsequent encounter

== ENCOUNTER 2022-07-01 14:10 | Emergency (ER) | payer MEDICARE ==
[~2022-07-01] VITALS: Ht 167.6 cm; Wt 50.8 kg
[2022-07-01 14:25] VITALS: BP 142/82
== END 2022-07-01 15:00 | disposition home or self-care (01) ==
LOC: ER 14:20
DX: Z48.02 Encounter for removal of sutures (principal); I10 Essential (primary) hypertension; E78.00 Pure hypercholesterolemia, unspecified; Z60.2 Problems related to living alone; Z79.899 Other long term (current) drug therapy

== ENCOUNTER 2022-11-17 14:01 | Inpatient (IN) | payer MEDICARE ==
[~2022-11-17] VITALS: Ht 172.7 cm; Wt 49.9 kg
--- NOTE | 2022-11-17 14:43 | NUR ---
established iv line at right ac 20g
--- NOTE | 2022-11-17 14:51 | NUR ---
covid swab done
[2022-11-17 14:58] LABS: BASOPHILS % (AUTO) 0.5 % (0.0-2.0); EOSINOPHILS % (AUTO) 2.7 % (0.0-6.0); HEMATOCRIT 32 % (39-51); HEMOGLOBIN 10.6 g/dL (13.5-17.5); LYMPHOCYTES # (AUTO) 0.9 K/uL (0.8-4.8); MEAN CORPUSCULAR HGB CONC 33 g/dl (31.0-36.0); MEAN CORPUSCULAR VOLUME 94 fL (80-96); MONOCYTES # (AUTO) 0.4 K/uL (0.1-1.30); MONOCYTES % (AUTO) 7.4 % (2.0-12.0); NEUTROPHILS # (AUTO) 4.1 K/uL (1.8-8.9); NEUTROPHILS % (AUTO) 73.4 % (43.0-81.0); PLATELET COUNT (AUTO) 216 K/uL (150-450); RED BLOOD CELL COUNT(AUTO) 3.44 MIL/uL (4.5-6.0); WHITE BLOOD COUNT (AUTO) 5.5 K/uL (4.3-11.0)
[2022-11-17] MEDS ORDERED: PANTOPRAZOLE 80 MG in IV NS 0.9% 500 ML IV ONE (15:00)
[2022-11-17] MEDS ORDERED: PANTOPRAZOLE 80 MG in IV NS 0.9% 100 ML IV ONE (15:00)
[2022-11-17] MEDS ORDERED: ASCO-340 PO (15:02)
[2022-11-17] MEDS ORDERED: MULT-447 PO (15:02)
[2022-11-17 15:29] LABS: ALBUMIN 3.2 g/dL (3.4-5.0); BILIRUBIN,DIRECT 0.1 mg/dL (0.0-0.2); BILIRUBIN,TOTAL 0.3 mg/dL (0.2-1.0); CALCIUM, SERUM 8.3 mg/dL (8.5-10.1); CREATININE 0.7 mg/dL (0.6-1.3); POTASSIUM 3.5 mmol/L (3.5-5.1); TOTAL PROTEIN, SERUM 5.6 g/dL (6.4-8.2)
--- NOTE | 2022-11-17 15:39 | NUR ---
[facility] CALLED RV DETAILER PAGED.
--- NOTE | 2022-11-17 16:35 | NUR ---
REPORT GIVEN TO JURGEN ALFARO FOR MIGUEL
[2022-11-17] MEDS ORDERED: MAGNESIUM HYDROXIDE 30 ML UDC PO PRN (17:00)
[2022-11-17] MEDS ORDERED: MAG HYDROX/AL HYDROX/SIMETH 30 ML UDC PO PRN (17:00)
[2022-11-17] MEDS ORDERED: MORPHINE SULFATE INJ 2 MG/ML DISP.SYRIN IV PRN (17:00)
[2022-11-17] MEDS ORDERED: ONDANSETRON HCL/PF 4 MG/2 ML VIAL IVP PRN (17:00)
[2022-11-17] MEDS ORDERED: LORAZEPAM INJ 2 MG/ML VIAL IV PRN (17:00)
[2022-11-17] MEDS ORDERED: Z GUARD REMEDY 4 OZ OINT TP PRN (17:00)
[2022-11-17] MEDS ORDERED: ACETAMINOPHEN 325 MG TABLET PO PRN (17:00)
[2022-11-17] MEDS: IV D5/ 0.9% NACL 1,000 ML IV PRN (17:27)
[2022-11-17 17:58] VITALS: BP 138/67
--- NOTE | 2022-11-17 20:09 | NUR ---
received in bed requesting to go to the bathroom street clothes are on ambulated with the nurse to the bathroom small amount loose stool brown in color voided clear yellow alert and orientated X4 slow steady gait needing assit back to bed hospital gown on bed alarm set call light reviewed with patient
[2022-11-17] MEDS ORDERED: PANTOPRAZOLE 40 MG VIAL IV SCH (21:00)
[2022-11-17 22:00] VITALS: BP 138/67
--- NOTE | 2022-11-18 04:39 | NUR ---
closing notes: alert and orientated X$ will use the call light to call for the nurse for assist up to the bathroom X3 to urinate and have a BM Stool soft mushy brown in color un able to get a specimen for OCB clear liquid diet maintained and he is tolerating
[2022-11-18] MEDS: IV D5/ 0.9% NACL 1,000 ML IV PRN (05:45)
[2022-11-18 05:57] LABS: BASOPHILS % (AUTO) 0.4 % (0.0-2.0); EOSINOPHILS % (AUTO) 8.3 % (0.0-6.0); HEMATOCRIT 28 % (39-51); HEMOGLOBIN 9.6 g/dL (13.5-17.5); LYMPHOCYTES # (AUTO) 0.8 K/uL (0.8-4.8); LYMPHOCYTES % (AUTO) 20.8 % (20.0-44.0); MEAN CORPUSCULAR HGB CONC 34 g/dl (31.0-36.0); MEAN CORPUSCULAR VOLUME 94 fL (80-96); MONOCYTES # (AUTO) 0.3 K/uL (0.1-1.30); MONOCYTES % (AUTO) 7.4 % (2.0-12.0); NEUTROPHILS # (AUTO) 2.4 K/uL (1.8-8.9); NEUTROPHILS % (AUTO) 63.1 % (43.0-81.0); PLATELET COUNT (AUTO) 156 K/uL (150-450); RED BLOOD CELL COUNT(AUTO) 3.01 MIL/uL (4.5-6.0); WHITE BLOOD COUNT (AUTO) 3.8 K/uL (4.3-11.0)
[2022-11-18 06:00] VITALS: BP 119/45
[2022-11-18 06:16] LABS: CALCIUM, SERUM 8.4 mg/dL (8.5-10.1); CARBON DIOXIDE 27 mmol/L (21-32); CHLORIDE 109 mmol/L (98-107); CREATININE 0.6 mg/dL (0.6-1.3); GLUCOSE 86 mg/dL (74-106); PHOSPHORUS 3.2 mg/dL (2.5-4.9); POTASSIUM 3.7 mmol/L (3.5-5.1); SODIUM SERUM 141 mmol/L (136-145); UREA NITROGEN, BLOOD 13 mg/dL (7-18)
[2022-11-18 06:19] LABS: THYROID STIMULATING HORMONE 1.997 uIU/mL (0.358-3.74)
--- NOTE | 2022-11-18 07:30 | NUR ---
RN Receiving Report. Patient AOx4 able to express his concerns. Patient made aware of plan of care and the need to use the call light to get assistance to walk to the bathroom, pt verbalized agreement. Patient with no signs of distress or discomfort, no sign of respiratory distress, no sign of IV infiltration. All safety precautions taken, call light and table within reach, bed at lowest position. Will continue to monitor throughout shift.
[2022-11-18] MEDS: PANTOPRAZOLE 40 MG VIAL IV SCH ×2 (08:11→20:27)
[2022-11-18 14:00] VITALS: BP 146/78
--- NOTE | 2022-11-18 19:46 | NUR ---
RN OPENING NOTES; RECEIVED PATIENT IN BED AAOX4. ATTHE BED SIDE,PT ABLE TO MAKE NEEDS KNOWN,JODIE WELL ON RM AIR SATTING 97.8%,NO SIGN SOB/DISTRESS NOTED,NO COMPLAIN OF PAIN/DISCOMFORT AT THIS TIME,IV ACCESS ON RAC 20G WITH D5NS RUNNING @ 75ML/HR,JODIE WELL,SAFETY MEASURE IN PLACE,CALL LIGHT WITHIN REACH.WILL CONTINUE TO MONITOR.
[2022-11-18 20:00] VITALS: BP 133/55
[2022-11-19] MEDS: IV D5/ 0.9% NACL 1,000 ML IV PRN (02:34)
[2022-11-19 04:00] VITALS: BP 127/59
[2022-11-19 05:54] LABS: BASOPHILS % (AUTO) 0.4 % (0.0-2.0); EOSINOPHILS % (AUTO) 6.2 % (0.0-6.0); HEMATOCRIT 32 % (39-51); HEMOGLOBIN 10.5 g/dL (13.5-17.5); LYMPHOCYTES # (AUTO) 0.9 K/uL (0.8-4.8); LYMPHOCYTES % (AUTO) 19.7 % (20.0-44.0); MEAN CORPUSCULAR HGB CONC 33 g/dl (31.0-36.0); MEAN CORPUSCULAR VOLUME 95 fL (80-96); MONOCYTES # (AUTO) 0.3 K/uL (0.1-1.30); MONOCYTES % (AUTO) 6.7 % (2.0-12.0); PLATELET COUNT (AUTO) 189 K/uL (150-450); RED BLOOD CELL COUNT(AUTO) 3.38 MIL/uL (4.5-6.0); WHITE BLOOD COUNT (AUTO) 4.5 K/uL (4.3-11.0)
--- NOTE | 2022-11-19 06:24 | NUR ---
RN CLOSING NOTES; PATIENT IN BED AAOX4,ABLE TO MAKE NEEDS KNOWN,JODIE WELL ON RM AIR SATTING 98%,NO SIGN SOB/DISTRESS NOTED,NO COMPLAIN OF PAIN/DISCOMFORT DURING SHIFT,DUE MEDS GIVEN ORDER,ALL NEEDS ATTENDED,IV ACCESS ON LFA 22G WITH D5NS RUNNING @ 75ML/HR,JODIE WELL,SAFETY MEASURE IN PLACE,CALL LIGHT WITHIN REACH.WILL ENDORSED TO NEXT SHIFT.
--- NOTE | 2022-11-19 07:35 | NUR ---
RN OPENING NOTES; RECEIVED PATIENT IN BED AAOX4 ,PT ABLE TO MAKE NEEDS KNOWN,JODIE WELL ON RM AIR SATURATING AT 97.8%,NO SIGN SOB/DISTRESS NOTED,NO COMPLAIN OF PAIN/DISCOMFORT AT THIS TIME,IV ACCESS ON RAC 20G WITH D5NS RUNNING @ 75ML/HR,JODIE WELL,SAFETY MEASURE IN PLACE,SIDERIALS UP X 2 CALL LIGHT WITHIN REACH.WILL CONTINUE TO MONITOR
[2022-11-19 09:05] LABS: CALCIUM, SERUM 8.6 mg/dL (8.5-10.1); CREATININE 0.6 mg/dL (0.6-1.3); POTASSIUM 3.1 mmol/L (3.5-5.1)
[2022-11-19] MEDS: PANTOPRAZOLE 40 MG VIAL IV SCH ×2 (09:07→21:00)
[2022-11-19 12:00] VITALS: BP 161/93
[2022-11-19] MEDS ORDERED: POTASSIUM CHLORIDE 20 MEQ TAB.PRT.SR PO ONE (12:00)
[2022-11-19] MEDS: ENSURE ENLIVE 237 ML LIQUID (VANILLA) PO SCH (17:46)
--- NOTE | 2022-11-19 18:56 | NUR ---
RN CLOSING NOTES; PATIENT IN BED AAOX4 ,PT ABLE TO MAKE NEEDS KNOWN,JODIE WELL ON RM AIR SATURATING AT 97.8%,NO SIGN SOB/DISTRESS NOTED,NO COMPLAIN OF PAIN/DISCOMFORT AT THIS TIME,IV ACCESS ON RAC 20G WITH D5NS RUNNING @ 75ML/HR,JODIE WELL,ALL DUE MEDS ORDERED GIVEN AND DR BAKER D/C HYDRATION , DIET WAS UPGRADE TO REGULAR DIET ORDERED AND TOLERATED WELL , NO BLEEDING NOTED SAFETY MEASURE IN PLACE,SIDERIALS UP X 2 CALL LIGHT WITHIN REACH.WILL CONTINUE TO MONITOR
--- NOTE | 2022-11-19 19:47 | NUR ---
RN OPENING NOTE PATIENT AWAKE IN BED. A/OX4. NO S/S OF DISTRESS, BREATHING WITHOUT DIFFICULTY ON ROOM AIR. LFA #22 SL INTACT AND PATENT. SAFETY MEASURES IN P[LACE: BED LOCKED AND AT LOWEST POSITION, RAILS UP X2, CALL CHOWDHURY WITHIN REACH. WILL CONTINUE TO MONITOR PATIENT.
[2022-11-19 20:51] VITALS: BP 139/47
[2022-11-19] MEDS ORDERED: ATORVASTATIN 10 MG TABLET PO SCH (22:00)
[2022-11-20 04:00] VITALS: BP 139/47
[2022-11-20 06:22] LABS: BASOPHILS % (AUTO) 0.3 % (0.0-2.0); EOSINOPHILS % (AUTO) 6.5 % (0.0-6.0); HEMATOCRIT 31 % (39-51); HEMOGLOBIN 10.4 g/dL (13.5-17.5); LYMPHOCYTES % (AUTO) 19.2 % (20.0-44.0); MEAN CORPUSCULAR HGB CONC 33 g/dl (31.0-36.0); MEAN CORPUSCULAR VOLUME 93 fL (80-96); MONOCYTES # (AUTO) 0.4 K/uL (0.1-1.30); MONOCYTES % (AUTO) 7.2 % (2.0-12.0); NEUTROPHILS # (AUTO) 3.3 K/uL (1.8-8.9); NEUTROPHILS % (AUTO) 66.8 % (43.0-81.0); PLATELET COUNT (AUTO) 184 K/uL (150-450); RED BLOOD CELL COUNT(AUTO) 3.39 MIL/uL (4.5-6.0)
--- NOTE | 2022-11-20 06:28 | NUR ---
RN CLOSING NOTE PATIENT ASLEEP IN BED. A/OX4. NO S/S OF DISTRESS, BREATHING WITHOUT DIFFICULTY ON ROOM AIR. LFA #22 SL INTACT AND PATENT. SAFETY MEASURES IN PLACE: BED LOCKED IN POSITION AND AT LOWEST POSITION, RAILS UP X2, CALL [place] WITHIN REACH. WILL ENDORSE TO NEXT SHIFT FOR MIGUEL.
[2022-11-20 06:43] LABS: CALCIUM, SERUM 8.5 mg/dL (8.5-10.1); CARBON DIOXIDE 27 mmol/L (21-32); CHLORIDE 107 mmol/L (98-107); CREATININE 0.7 mg/dL (0.6-1.3); GLUCOSE 85 mg/dL (74-106); POTASSIUM 3.6 mmol/L (3.5-5.1); SODIUM SERUM 141 mmol/L (136-145); UREA NITROGEN, BLOOD 11 mg/dL (7-18)
--- NOTE | 2022-11-20 07:00 | NUR ---
MS RN OPENING NOTE PATIENT LAYING IN BED, A/O X 4, ABLE TO MAKE NEEDS KNOWN, TOLERATING WELL ON ROOM AIR WITH NO S/S RESPIRATORY DISTRESS. NO COMPLAINTS OF PAIN OR DISCOMFORT AT THIS TIME. L FA # 22 SL CLEAN, INTACT, FLUSHING WELL. SAFETY MEASURES IN PLACE: BED IN LOWEST LOCKED POSITION, SIDE RAILS UP X 2, CALL LIGHT WITHIN REACH. WILL CONTINUE TO MONITOR.
[2022-11-20] MEDS: PANTOPRAZOLE 40 MG VIAL IV SCH (08:57)
[2022-11-20] MEDS: ENSURE ENLIVE 237 ML LIQUID (VANILLA) PO SCH (08:58)
[2022-11-20] MEDS ORDERED: ASCORBIC ACID 500 MG TABLET PO SCH (09:00)
[2022-11-20] MEDS ORDERED: MULTIVITAMINS,THERAGRAN 1 UDTAB TABLET PO SCH (09:00)
[2022-11-20] MEDS ORDERED: LOSARTAN POTASSIUM 50 MG TABLET PO SCH (09:00)
[2022-11-20] MEDS ORDERED: PANT40TA2 PO (10:49)
[2022-11-20 12:00] VITALS: BP 130/66
--- NOTE | 2022-11-20 14:00 | NUR ---
MS MICROSTRATEGY DEVELOPER NOTES PATIENT MADE AWARE OF MD DISCHARGE ORDERS AND INSTRUCTIONS. PATIENT VERBALIZED UNDERSTANDING OF MD DISCHARGE INSTRUCTIONS AND SIGNED INSTRUCTIONS SHEET. PATIENT ALSO VERBALIZED POSSESSION OF ALL BELONGINGS AND SIGNED BELONGINGS LIST. IV LINE AND ID BANDS REMOVED. PATIENT TRANSFERRED FROM UNIT VIA GURNEY ACCOMPANIED BY 2 [employer] TEAM MEMBER. ALL PAPERWORK PROVIDED TO PATIENT. PATIENT STABLE AT TIME OF DISCHARGE.
--- NOTE | 2022-11-20 17:00 | NUR ---
MS RN NOTE PATIENT WALLET WAS FOUND IN HIS ROOM AND PLACED IN SECURE BAG. PATIENT CALLED UNIT AND STATED HIS NEIGHBOR SRIDHAR CANNON WILL COME RIVER DRIVER THE WALLET FOR HIM TONIGHT AT ABOUT 2000. INSTRUCTED HER TO RIVER DRIVER BAG FROM NURSING [employer] [employer] OFFICE.
== END 2022-11-20 14:48 | disposition home or self-care (01) | DRG 377 ==
LOC: ER 14:03 → MEDSG1 16:22
PROVIDERS: ADMIT Nurse Practitioner Acute Care; ATTEND Nurse Practitioner Acute Care
DX: K92.2 Gastrointestinal hemorrhage, unspecified (principal); E43 Unspecified severe protein-calorie malnutrition; N17.0 Acute kidney failure with tubular necrosis; R64 Cachexia; I10 Essential (primary) hypertension; E78.00 Pure hypercholesterolemia, unspecified; E78.5 Hyperlipidemia, unspecified; Z95.2 Presence of prosthetic heart valve; I87.8 Other specified disorders of veins
CPT/HCPCS: 36415; 71045-TC; 80048-TC; 80076-TC; 83690-TC; 83735-TC; 84100-TC; 84443-TC; 85025-TC; 85730-TC; 86850-TC; 87081-TC; 93970-TC; 97112-TC; 97116-TC; 97530-TC; C9113; C9803; G0378; J7030; J7040; J7042; J7050

== ENCOUNTER 2023-03-02 18:32 | Inpatient (IN) | payer MEDICARE ==
[~2023-03-02] VITALS: Ht 162.6 cm; Wt 46.4 kg
[~2023-03-02 18:32] MED LIST changes: +ASCO-340 PO; -DOCU-141 PO; -HYDR-4209 PO; -IBUP-1957 PO; +MULT-447 PO; +PANT40TA2 PO
--- NOTE | 2023-03-02 18:42 | NUR ---
pt bibra from home c/o frequent falls recently, is c/o back pain. denies any head trauma. pt states he lives alone. no obvious trauma noted. stable vitals. awaiting md soria.
--- NOTE | 2023-03-02 18:50 | NUR ---
dr cantu at bedside for eval.
--- NOTE | 2023-03-02 18:59 | NUR ---
medicated as ordered. see emar
[2023-03-02] MEDS ORDERED: ACETAMINOPHEN ES 500 MG TABLET PO ONE (19:00)
--- NOTE | 2023-03-02 19:14 | NUR ---
report given to karena mendes for tony.
--- NOTE | 2023-03-02 20:25 | NUR ---
RETURNED FROM XRAY
[2023-03-02] MEDS ORDERED: LIDO30AD10 TP (21:41)
--- NOTE | 2023-03-02 22:26 | NUR ---
BLOOD COLLECTED AND SENT TO LAB
--- NOTE | 2023-03-02 22:26 | NUR ---
LINE ESTABLISHED AT [facility]
--- NOTE | 2023-03-02 22:26 | NUR ---
COVID SWAB DONE AND SENT TO LAB
[2023-03-02] MEDS ORDERED: ONDANSETRON HCL/PF 4 MG/2 ML VIAL IVP PRN (22:30)
[2023-03-02] MEDS ORDERED: HYDROCODONE/APAP 5/325MG TABLET PO PRN (22:30)
[2023-03-02] MEDS ORDERED: MAG HYDROX/AL HYDROX/SIMETH 30 ML UDC PO PRN (22:30)
[2023-03-02] MEDS ORDERED: Z GUARD REMEDY 4 OZ OINT TP PRN (22:30)
[2023-03-02] MEDS ORDERED: TEMAZEPAM 15 MG CAPSULE PO PRN (22:30)
[2023-03-02] MEDS ORDERED: MAGNESIUM HYDROXIDE 30 ML UDC PO PRN (22:30)
[2023-03-02] MEDS ORDERED: ACETAMINOPHEN 325 MG TABLET PO PRN (22:30)
--- NOTE | 2023-03-02 22:56 | NUR ---
CALLED TO GIVE REPORT, "NURSE BUSY"
[2023-03-02 23:12] LABS: BASOPHILS % (AUTO) 0.3 % (0.0-2.0); EOSINOPHILS % (AUTO) 0.8 % (0.0-6.0); HEMATOCRIT 37 % (39-51); HEMOGLOBIN 12.2 g/dL (13.5-17.5); LYMPHOCYTES # (AUTO) 0.8 K/uL (0.8-4.8); LYMPHOCYTES % (AUTO) 14.2 % (20.0-44.0); MEAN CORPUSCULAR HGB CONC 33 g/dl (31.0-36.0); MEAN CORPUSCULAR VOLUME 91 fL (80-96); MONOCYTES # (AUTO) 0.4 K/uL (0.1-1.30); MONOCYTES % (AUTO) 7.4 % (2.0-12.0); NEUTROPHILS # (AUTO) 4.2 K/uL (1.8-8.9); NEUTROPHILS % (AUTO) 77.3 % (43.0-81.0); PLATELET COUNT (AUTO) 352 K/uL (150-450); RED BLOOD CELL COUNT(AUTO) 4.03 MIL/uL (4.5-6.0); WHITE BLOOD COUNT (AUTO) 5.4 K/uL (4.3-11.0)
--- NOTE | 2023-03-02 23:12 | NUR ---
REPORT GIVEN TO RN LEO
[2023-03-02 23:25] LABS: CALCIUM, SERUM 9.1 mg/dL (8.5-10.1); CREATININE 0.7 mg/dL (0.6-1.3); POTASSIUM 3.5 mmol/L (3.5-5.1)
[2023-03-02 23:32] LABS: ALBUMIN 3.3 g/dL (3.4-5.0); BILIRUBIN,DIRECT 0.1 mg/dL (0.0-0.2); BILIRUBIN,TOTAL 0.4 mg/dL (0.2-1.0); TOTAL PROTEIN, SERUM 5.9 g/dL (6.4-8.2)
[2023-03-02 23:45] VITALS: BP 150/56
--- NOTE | 2023-03-02 23:50 | NUR ---
MS BUCKLE SEWER MACHINE NOTES - RECEIVED PATIENT FROM ED AT 2335 VIA GURNEY UNDER THE CARE OF REMIGIO BAKER NP WITH DX OF ACUTE WEAKNESS AND RIB FRACTURE. PATIENT IS A/O X3, FORGETFUL AND A POOR HISTORIAN. PREVIOUS MEDICAL RECORDS WERE ALSO USED TO GATHER PMI. PATIENT DENIES SOB, , N/V, D/C, PAIN, DIZZINESS. NOT IN APPARENT DISTRESS. HAS RIGHT ANTECUBITAL IV ACCESS #20G AND SALINE LOCKED. NO S/S OF INFILTRATION NOTED. VITAL SIGNS TAKEN AND PHYSICAL ASSESSMENT DONE. BILATERAL LOWER LEG PITTING EDEMA NOTED. OPEN WOUND NOTED ON THE LEFT LEG, PHOTOS TAKEN. ALL BELONGINGS ACCOUNTED FOR. ORIENTED PATIENT TO UNIT AND STAFF. PATIENT IS ON BED REST PENDING PT EVALUATION. INDEPENDENT ON ADLS. CONTINENT BUT HAD EPISODES OF URINARY INCONTINENCE. SAFETY PRECAUTIONS IN PLACE: BED LOCKED AND IN LOW POSITION, SIDE RAILS UP X2, BED ALARM ON, CALL LIGHT WITHIN REACH. WILL CONTINUE PLAN OF CARE.
[2023-03-03 06:00] LABS: BASOPHILS % (AUTO) 0.6 % (0.0-2.0); EOSINOPHILS % (AUTO) 3.5 % (0.0-6.0); HEMATOCRIT 35 % (39-51); HEMOGLOBIN 11.5 g/dL (13.5-17.5); LYMPHOCYTES # (AUTO) 0.8 K/uL (0.8-4.8); LYMPHOCYTES % (AUTO) 19.3 % (20.0-44.0); MEAN CORPUSCULAR HGB CONC 33 g/dl (31.0-36.0); MEAN CORPUSCULAR VOLUME 92 fL (80-96); MONOCYTES # (AUTO) 0.4 K/uL (0.1-1.30); MONOCYTES % (AUTO) 8.8 % (2.0-12.0); NEUTROPHILS % (AUTO) 67.8 % (43.0-81.0); PLATELET COUNT (AUTO) 309 K/uL (150-450); WHITE BLOOD COUNT (AUTO) 4.4 K/uL (4.3-11.0)
[2023-03-03 06:10] LABS: CALCIUM, SERUM 8.8 mg/dL (8.5-10.1); CREATININE 0.6 mg/dL (0.6-1.3); MAGNESIUM 2.4 mg/dL (1.8-2.4); PHOSPHORUS 3.3 mg/dL (2.5-4.9); POTASSIUM 4.5 mmol/L (3.5-5.1)
[2023-03-03 06:22] LABS: THYROID STIMULATING HORMONE 4.191 uIU/mL (0.358-3.74)
--- NOTE | 2023-03-03 06:48 | NUR ---
MS RN CLOSING NOTES - PATIENT SLEEPING, EASY TO AROUSE. ABLE TO VERBALIZE NEEDS. NO SOB OR , TOLERATING ROOM AIR WELL. NO ACUTE DISTRESS THROUGHOUT THE NIGHT. AFEBRILE. NO C/O PAIN OR DISCOMFORT. RIGHT ANTECUBITAL IV ACCESS INTACT, PATENT AND FLUSHING. ABLE TO USE URINAL BOTTLE, CLEAR YELLOW URINE NOTED. ALL NEEDS ATTENDED AND ANTICIPATED. SAFETY PRECAUTIONS MAINTAINED. WILL ENDORSE TO NEXT SHIFT FOR MIGUEL.
--- NOTE | 2023-03-03 07:15 | NUR ---
RN OPENING NOTES RECEIVED PATIENT ON BED AWAKE , A/O X 3 FORGETFUL , VERBALLY RESPONSIVE AND ON ROOM AIR WITH NO SOB OR DISTRESS NOTED , NO C/O OF PAIN AND DISCOMFORT , IV ACCESS ON RAC #20 SL , SAFETY MEASURE PROVIDED , KEPT DRY AND CLEAN , SR UP X 2 AND FALL PRECAUTIONS MAINTAINED AND WILL MONITOR FOR NAY CHANGES
[2023-03-03] MEDS: PANTOPRAZOLE 40 MG TABLET.DR PO SCH (07:51)
[2023-03-03 08:29] VITALS: BP 146/74
--- NOTE | 2023-03-03 09:20 | NUR ---
WOUND CARE CONSULT: PT PRESENTS VERY THIN AND BONY WITH KYPHOSIS WELL LOWER LEG ULCERS WITH REDNESS AND EDEMA, PRESENT ON ADMISSION. DR STEWART CALLED FOR DPM CONSULT. DISCUSSED SKIN PROTECTION WITH NURSING STAFF. MD IN AGREEMENT WITH PLAN OF CARE.
[2023-03-03 16:16] VITALS: BP 143/67
[2023-03-03 16:45] LABS: BILIRUBIN,URINE NEGATIVE (NEGATIVE); COLOR,URINE YELLOW (YELLOW); LEUKOCYTE ESTERASE ,URINE NEGATIVE (NEGATIVE); NITRITE, URINE NEGATIVE (NEGATIVE); PH,URINE 7.5 (5.0-8.0); PROTEIN,URINE NEGATIVE (NEGATIVE); UGLUCOSE NEGATIVE (NEGATIVE); UROBILINOGEN,URINE 0.2 EU/dL (0.2)
[2023-03-03] MEDS: ENSURE ENLIVE 237 ML LIQUID (VANILLA) PO SCH (17:13)
--- NOTE | 2023-03-03 18:31 | NUR ---
RN CLOSING NOTES RECEIVED PATIENT ON BED AWAKE , A/O X 3 FORGETFUL , VERBALLY RESPONSIVE AND ON ROOM AIR WITH NO SOB OR DISTRESS NOTED , NO C/O OF PAIN AND DISCOMFORT , IV ACCESS ON RAC #20 SL ,ALL DUE MEDS GIVEN ORDERED , SEEN BY PT /OT AND PATIENT ABLE TO AMBULATE WITH FWW , SAFETY MEASURE PROVIDED , KEPT DRY AND CLEAN , SR UP X 2 AND FALL PRECAUTIONS MAINTAINED AND ENDORSED TO NEXT SHIFT
--- NOTE | 2023-03-03 19:10 | NUR ---
MS RN OPENING NOTES - RECEIVED PATIENT AWAKE IN BED. A/O X3, FORGETFUL. BREATHING EVEN AND NON-LABORED ON ROOM AIR. NOT IN APPARENT DISTRESS. NO C/O PAIN AT THIS TIME. HAS RIGHT ANTECUBITAL IV ACCESS #20G AND SALINE LOCKED. NO S/S OF INFILTRATION NOTED. LEFT LEG WOUND DRESSING INTACT. FWW BY THE BEDSIDE. SAFETY PRECAUTIONS IN PLACE: BED LOCKED AND IN LOW POSITION, SIDE RAILS UP X2, BED ALARM ON, CALL LIGHT WITHIN REACH. WILL CONTINUE PLAN OF CARE.
[2023-03-03 20:00] VITALS: BP 149/65
[2023-03-03 21:31] VITALS: BP 149/65
--- NOTE | 2023-03-04 06:25 | NUR ---
MS RN CLOSING NOTES - PATIENT SLEEPING, EASY TO AROUSE. ABLE TO VERBALIZE NEEDS. PERIODS OF CONFUSION NOTED. RE-ORIENTATION NEEDED. NO CARDIAC OR RESPIRATORY DISTRESS THROUGHOUT THE NIGHT. C/O ABDOMINAL PAIN WHILE BEING MOVED. AFEBRILE. RIGHT ANTECUBITAL IV ACCESS INTACT, PATENT AND FLUSHING. LEFT LEG DRESSING C/D/I. ALL NEEDS ATTENDED AND ANTICIPATED. PERINEAL CARE RENDERED. SAFETY PRECAUTIONS MAINTAINED. WILL ENDORSE TO NEXT SHIFT FOR MIGUEL.
[2023-03-04 07:00] VITALS: BP 158/65
[2023-03-04] MEDS: LOSARTAN POTASSIUM 50 MG TABLET PO SCH (08:21)
[2023-03-04] MEDS: PANTOPRAZOLE 40 MG TABLET.DR PO SCH (08:21)
[2023-03-04] MEDS: ENSURE ENLIVE 237 ML LIQUID (VANILLA) PO SCH ×2 (08:22→16:55)
[2023-03-04] MEDS: PROSOURCE / PROSTAT (PYXIS) 30 ML UDC GT SCH (08:22)
[2023-03-04] MEDS: FLUOCINONIDE 0.05% CREAM 60 GM TUBE TP SCH ×2 (08:54→16:55)
[2023-03-04] MEDS: GENTAMICIN 0.1% OINT 15 GM TUBE TP SCH ×2 (08:54→16:55)
[2023-03-04 16:00] VITALS: BP 131/61
[2023-03-04] MEDS ORDERED: ATORVASTATIN 10 MG TABLET PO SCH (18:00)
--- NOTE | 2023-03-04 18:24 | NUR ---
RN CLOSING NOTES RECEIVED PATIENT ON BED AWAKE , A/O X 3 FORGETFUL WITH CONFUSION , VERBALLY RESPONSIVE AND ON ROOM AIR WITH NO SOB OR DISTRESS NOTED , NO C/O OF PAIN AND DISCOMFORT , IV ACCESS ON RAC #20 SL ,ALL DUE MEDS GIVEN ORDERED , SEEN BY PT /OT AND PATIENT ABLE TO AMBULATE WITH FWW , SAFETY MEASURES PROVIDED , KEPT DRY AND CLEAN , DISCHARGE PLANNING TO SNF WHEN STABLE , SR UP X 2 AND FALL PRECAUTIONS MAINTAINED AND ENDORSED TO NEXT SHIFT
--- NOTE | 2023-03-04 19:20 | NUR ---
MS RN OPENING NOTE RECEIVED PATIENT FROM AM NURSE; PATIENT AWAKE IN BED, A/O X 3 WITH EPISODES OF FORGETFULNESS AND CONFUSION, VERBALLY RESPONSIVE; STABLE ON ROOM AIR WITH NO SOB OR DISTRESS NOTED; WITH IV ACCESS ON RAC G#20 SL; ENCOURAGED VERBALIZATION OF NEEDS; SAFETY MEASURES IMPLEMENTED, BED IN LOW AND LOCKED POSITION, SIDE RAILS UP X 4, BED ALARM ON, CALL LIGHT AND TABLE WITHIN REACH; FALL PRECAUTIONS MAINTAINED; WILL CONTINUE TO MONITOR THROUGHOUT SHIFT
[2023-03-04 20:00] VITALS: BP 125/59
[2023-03-04 20:39] VITALS: BP 108/72
--- NOTE | 2023-03-05 06:50 | NUR ---
MS RN CLOSING NOTE PATIENT AWAKE IN BED, A/O X 3 WITH EPISODES OF FORGETFULNESS AND CONFUSION, NEEDS REORIENTATION AT TIMES; VERBALLY RESPONSIVE; STABLE ON ROOM AIR WITH NO S/S OF DISTRESS NOTED; WITH IV ACCESS ON RAC G#20 SL, INTACT AND PATENT; ADMINISTERED MEDICATIONS PRESCRIBED; PATIENT'S NEEDS ATTENDED; MONITORED PATIENT ACCORDINGLY; SAFETY MEASURES IMPLEMENTED, BED IN LOW AND LOCKED POSITION, SIDE RAILS UP X 4, BED ALARM ON, CALL LIGHT AND TABLE WITHIN REACH; FALL PRECAUTIONS MAINTAINED; WILL ENDORSE TO AM NURSE FOR MIGUEL.
[2023-03-05 07:00] VITALS: BP 136/65
--- NOTE | 2023-03-05 07:30 | NUR ---
RN OPENING NOTES RECEIVED PATIENT ON BED AWAKE , A/O X 3 FORGETFUL , VERBALLY RESPONSIVE AND ON ROOM AIR WITH NO SOB OR DISTRESS NOTED , NO C/O OF PAIN AND DISCOMFORT , IV ACCESS ON RAC #20 SL , SAFETY MEASURE PROVIDED , KEPT DRY AND CLEAN , SR UP X 2 AND FALL PRECAUTIONS MAINTAINED AND WILL MONITOR FOR ANY CHANGES .
[2023-03-05 08:09] VITALS: BP 136/65
[2023-03-05] MEDS: ENSURE ENLIVE 237 ML LIQUID (VANILLA) PO SCH (08:09)
[2023-03-05] MEDS: LOSARTAN POTASSIUM 50 MG TABLET PO SCH (08:09)
[2023-03-05] MEDS: PANTOPRAZOLE 40 MG TABLET.DR PO SCH (08:09)
[2023-03-05] MEDS: FLUOCINONIDE 0.05% CREAM 60 GM TUBE TP SCH (08:12)
[2023-03-05] MEDS: GENTAMICIN 0.1% OINT 15 GM TUBE TP SCH (08:12)
[2023-03-05] MEDS: PROSOURCE / PROSTAT (PYXIS) 30 ML UDC GT SCH (08:13)
--- NOTE | 2023-03-05 15:30 | NUR ---
GENERAL ACTIVITIES THERAPIST NOTES PATIENT IS WITH ORDER FOR DISCHARGE TO SNF @ [facility] , ALL DISCHARGE PAPERS WERE PREPARED AND DISCHARGE INSTRUCTIONS PROVIDED REGARDING MEDICATIONS , SAFETY , FOLLOW UP WITH PCP AND CALL 911 IN CASE OF EMERGENCY , PATIENT IS ALERT AND ABLE TO UNDERSTAND INSTRUCTIONS PROVIDED , ALL BELONGINGS WERE TAKEN AND FORM WAS SIGNED , REPORT GIVEN TO AL MEYER AND ALSO TO EMT , PATIENT LEFT WITH NO SOB , NO DISTRESS NOTED , IN A STABLE CONDITION .
== END 2023-03-05 15:45 | DRG 184 ==
LOC: ER 18:34 → MED 22:56
PROVIDERS: ADMIT Nurse Practitioner Acute Care; ATTEND Internal Medicine
DX: S22.42XA Multiple fractures of ribs, left side, initial encounter for closed fracture (principal); E44.0 Moderate protein-calorie malnutrition; L03.116 Cellulitis of left lower limb; L97.929 Non-pressure chronic ulcer of unspecified part of left lower leg with unspecified severity; R64 Cachexia; Z68.1 Body mass index [BMI] 19.9 or less, adult; W01.0XXA Fall on same level from slipping, tripping and stumbling without subsequent striking against object, initial encounter; Y92.009 Unspecified place in unspecified non-institutional (private) residence as the place of occurrence of the external cause; I10 Essential (primary) hypertension; Z20.822 Contact with and (suspected) exposure to COVID-19; E78.5 Hyperlipidemia, unspecified; Z95.2 Presence of prosthetic heart valve; R26.9 Unspecified abnormalities of gait and mobility; Z79.899 Other long term (current) drug therapy; Z98.890 Other specified postprocedural states; Z91.81 History of falling; I87.8 Other specified disorders of veins; R60.9 Edema, unspecified
CPT/HCPCS: 36415; 71045-TC; 71100-TC; 72100-TC; 72192-TC; 80048-TC; 80061-TC; 80076-TC; 83735-TC; 84100-TC; 84443-TC; 85025-TC; 85730-TC; 87081-TC; 97116-TC; 97530-TC; A6403; G0378

== ENCOUNTER 2024-04-19 12:04 | Emergency (ER) | payer MEDICARE, MEDICAID ==
[~2024-04-19] VITALS: Ht 160 cm; Wt 59.4 kg
[~2024-04-19 12:04] MED LIST changes: -ASCO-340 PO; -MULT-447 PO; -PANT40TA2 PO
[2024-04-19 17:22] VITALS: BP 155/49; TEMP 98.1; O2SAT 97
== END 2024-04-19 17:22 ==
LOC: ER 12:06
DX: S61.214A Laceration without foreign body of right ring finger without damage to nail, initial encounter (principal); S61.212A Laceration without foreign body of right middle finger without damage to nail, initial encounter; I10 Essential (primary) hypertension; Z86.79 Personal history of other diseases of the circulatory system; Z87.19 Personal history of other diseases of the digestive system; Z87.39 Personal history of other diseases of the musculoskeletal system and connective tissue; Z60.2 Problems related to living alone; W18.39XA Other fall on same level, initial encounter; Y93.89 Activity, other specified; Y92.89 Other specified places as the place of occurrence of the external cause; Y99.8 Other external cause status
CPT/HCPCS: 12001; 73130; 99285; A6403

== ENCOUNTER 2025-09-04 14:52 | Inpatient (IN) | payer MEDICARE, OTHER ==
[~2025-09-04] VITALS: Ht 167.6 cm; Wt 58.1 kg
[2025-09-04 15:59] LABS: APPEARANCE,URINE CLEAR (CLEAR); BLOOD, URINE Negative Ery/uL (NEGATIVE); LEUKOCYTE ESTERASE ,URINE Negative (NEGATIVE); NITRITE, URINE NEGATIVE (NEGATIVE); UGLUCOSE Negative (NEGATIVE)
[2025-09-04 16:01] LABS: ADD URINE CULTURE NO; HYALINE CASTS, URINE Rare /LPF (None Seen); SQUAMOUS EPITHELIAL CELL,UR None Seen /HPF (None Seen); URINE AMORPHOUS URATE Rare /HPF (None Seen)
[2025-09-04 16:05] LABS: PLATELET COUNT (AUTO) 340 K/uL (150-450); RED BLOOD CELL COUNT(AUTO) 3.82 MIL/uL (4.5-6.0); RED CELL DISTRIBUTION WIDTH 15.6 % (11.5-15.0); WHITE BLOOD COUNT (AUTO) 19.6 K/uL (4.3-11.0)
[2025-09-04 16:07] LABS: AMPHETAMINE, URINE NEGATIVE (NEGATIVE); BENZODIAZEPINE, URINE NEGATIVE (NEGATIVE); CANNABINOID, URINE NEGATIVE (NEGATIVE); COCCAINE, URINE NEGATIVE (NEGATIVE); OPIATE, URINE NEGATIVE (NEGATIVE)
[2025-09-04 16:14] LABS: CALCIUM, SERUM 8.7 mg/dL (8.5-10.1); CREATININE 2.3 mg/dL (0.6-1.3); SODIUM SERUM 141 mmol/L (136-145)
[2025-09-04 16:16] LABS: UREA NITROGEN, BLOOD 81 mg/dL (7-18)
[2025-09-04 16:20] LABS: SERUM AMMONIA 14 umol/L (11-32)
[2025-09-04 16:22] LABS: LACTIC ACID 4.7 mmol/L (0.4-2.0)
[2025-09-04 16:29] LABS: ASPARTATE AMINOTRANSFERASE 20 U/L (15-37); TOTAL PROTEIN, SERUM 5.9 g/dL (6.4-8.2)
[2025-09-04] MEDS ORDERED: ENOXAPARIN SODIUM 60 MG/0.6 ML DISP.SYRIN SQ ONE (16:31)
[2025-09-04] MEDS: ENOXAPARIN SODIUM 60 MG/0.6 ML DISP.SYRIN SQ ONE (16:32)
[2025-09-04 16:39] LABS: ALCOHOL, BLOOD < 3 mg/dL (0-10)
[2025-09-04] MEDS: IV NS 0.9% 500 ML BAG IV ONE (16:39)
[2025-09-04 16:44] LABS: BARBITURATE, URINE NEGATIVE (NEGATIVE)
[2025-09-04] MEDS: PIPERACILLIN /TAZOBACTAM 3.375 G in IV D5W 50 ML IV ONE (17:06)
[2025-09-04] MEDS: VANCOMYCIN HCL 1.25 GM in IV D5W 260 ML IV ONE (17:25)
[2025-09-04] MEDS: IV NS 0.9% 1,000 ML BAG IV ONE (19:20)
[2025-09-04] MEDS ORDERED: ONDANSETRON HCL/PF 4 MG/2 ML VIAL IVP PRN (19:30)
[2025-09-04] MEDS ORDERED: DOSING PER PHARMACY-VANCOMYCIN IV XX PRN (19:30)
[2025-09-04] MEDS ORDERED: Z GUARD REMEDY 4 OZ OINT TP PRN (19:30)
[2025-09-04 20:00] VITALS: BP 143/114; TEMP 97.7; O2SAT 98
[2025-09-04] MEDS: POTASSIUM CL. PREMIX PERIPHER. 50 ML IV SCH (20:34)
[2025-09-04] MEDS: PANTOPRAZOLE 80 MG in IV NS 0.9% 100 ML IV ONE (21:00)
[2025-09-04] MEDS ORDERED: PANTOPRAZOLE 80 MG in IV NS 0.9% 500 ML IV SCH (22:00)
[2025-09-04] MEDS: PANTOPRAZOLE 80 MG in IV NS 0.9% 500 ML IV SCH (22:05)
[2025-09-04 23:03] LABS: PLATELET COUNT (AUTO) 233 K/uL (150-450); RED BLOOD CELL COUNT(AUTO) 3.47 MIL/uL (4.5-6.0); RED CELL DISTRIBUTION WIDTH 17.0 % (11.5-15.0); WHITE BLOOD COUNT (AUTO) 16.9 K/uL (4.3-11.0)
[2025-09-04] MEDS: PIPERACILLIN /TAZOBACTAM 3.375 G in IV D5W 50 ML IV SCH (23:03)
[2025-09-05] VITALS: BP 100/60; TEMP 95.2; TEMP 97.7; O2SAT 98
[2025-09-05 04:00] VITALS: BP 103/56; TEMP 98.8; O2SAT 96
[2025-09-05] MEDS: IV NS 0.9% 1,000 ML IV PRN (04:18)
[2025-09-05 07:49] LABS: PLATELET COUNT (AUTO) 264 K/uL (150-450); RED BLOOD CELL COUNT(AUTO) 2.86 MIL/uL (4.5-6.0); RED CELL DISTRIBUTION WIDTH 16.1 % (11.5-15.0); WHITE BLOOD COUNT (AUTO) 14.4 K/uL (4.3-11.0)
[2025-09-05 07:59] LABS: CALCIUM, SERUM 8.3 mg/dL (8.5-10.1); CREATININE 1.5 mg/dL (0.6-1.3); PHOSPHORUS 2.9 mg/dL (2.5-4.9); SODIUM SERUM 147.0 mmol/L (136-145); UREA NITROGEN, BLOOD 61.0 mg/dL (7-18)
[2025-09-05 08:00] VITALS: BP 143/68; TEMP 98.6; O2SAT 98
[2025-09-05] MEDS: POTASSIUM CL. PREMIX PERIPHER. 50 ML IV SCH (08:53)
[2025-09-05] MEDS: IV 1/2NS 1000 ML 1,000 ML IV SCH (09:53)
[2025-09-05 14:16] LABS: CREATININE, URINE 68.9 MG/DL (30.0-125.0); URINE SODIUM, RANDOM 12.0 mmol/l (40-220); URINE TOTAL PROTEIN 131.2 mg/dL (0-11.9)
[2025-09-05 14:45] VITALS: BP 139/65; TEMP 98.2; O2SAT 100
[2025-09-05 16:00] VITALS: BP 120/88; TEMP 97.6; O2SAT 98
[2025-09-05] MEDS: VANCOMYCIN 1 GM in IV D5W 250ml IV SCH (17:47)
[2025-09-05] MEDS ORDERED: VANCOMYCIN 500 MG in IV D5W 100ml IV SCH (18:00)
[2025-09-05] MEDS: PIPERACILLIN /TAZOBACTAM 3.375 G in IV D5W 50 ML IV SCH (18:31)
[2025-09-05 20:00] VITALS: BP 138/61; TEMP 98.6; O2SAT 100
[2025-09-06] VITALS (68 sets, daily range): BP systolic 64–208; BP diastolic 11–188; TEMP 97–98; O2SAT 97–100
[2025-09-06 08:28] LABS: ABG BASE EXCESS -9.1 mmol/L (-2.0-3.0); ABG OXYGEN SATURATION 99.4 % (94.0-98.0); ABG PCO2 24.4 mmHg (35.0-48.0); ABG PH 7.397 (7.350-7.450); ABG PO2 341.2 mmHg (83.0-108.0); ABG TOTAL HEMOGLOBIN 7.8 G/dL (13.5-17.5); FRACTIONATED INSPIRED OXYGEN 100.0 %; SET RATE, BG 24.0; SITE, ABG RIGHT RADIAL; VT, ABG 450 mL
[2025-09-06] MEDS: IV NS 0.9% 500 ML IV ONE (08:36)
[2025-09-06] MEDS: AMIODARONE 450 MG in IV D5W 241 ML IV PRN (08:36)
[2025-09-06] MEDS ORDERED: EPINEPHRINE (1:10,000) SYRINGE 1 MG/10 ML DISP.SYRIN IVP ONE (08:39)
[2025-09-06] MEDS ORDERED: SODIUM BICARBONATE SYR 50 MEQ/50 ML DISP.SYRIN IV ONE (08:39)
[2025-09-06] MEDS ORDERED: AMIODARONE 150 MG/3 ML VIAL IV ONE (08:39)
[2025-09-06] MEDS ORDERED: Magnesium 1 GM/2 ML VIAL IV ONE (08:39)
[2025-09-06] MEDS ORDERED: CALCIUM CHLORIDE 1,000 MG/10 ML DISP.SYRIN IV ONE (08:39)
[2025-09-06] MEDS: PROPOFOL 100 ML IV PRN ×2 (08:43→18:06)
[2025-09-06 08:44] LABS: PLATELET COUNT (AUTO) 246 K/uL (150-450); RED BLOOD CELL COUNT(AUTO) 2.48 MIL/uL (4.5-6.0); RED CELL DISTRIBUTION WIDTH 16.9 % (11.5-15.0); WHITE BLOOD COUNT (AUTO) 8.8 K/uL (4.3-11.0)
[2025-09-06 08:57] LABS: ASPARTATE AMINOTRANSFERASE 122.0 U/L (15-37); CALCIUM, SERUM 8.3 mg/dL (8.5-10.1); CREATININE 1.3 mg/dL (0.6-1.3); PHOSPHORUS 3.3 mg/dL (2.5-4.9); SODIUM SERUM 148.0 mmol/L (136-145); TOTAL PROTEIN, SERUM 4.5 g/dL (6.4-8.2); UREA NITROGEN, BLOOD 28.0 mg/dL (7-18)
[2025-09-06 08:58] LABS: CREATINE KINASE, TOTAL 99.0 U/L (39-308)
[2025-09-06] MEDS: POTASSIUM CHLORIDE 20 MEQ POWDER PACKET NG SCH (09:30)
[2025-09-06] MEDS ORDERED: POTASSIUM CL. PREMIX PERIPHER. 50 ML IV SCH (10:00)
[2025-09-06] MEDS: PHENYLEPHRINE 50 MG in IV NS 0.9% 245 ML IV PRN (10:17)
[2025-09-06] MEDS: POTASSIUM CL. PREMIX PERIPHER. 50 ML IV SCH ×2 (11:00→17:21)
[2025-09-06] MEDS ORDERED: POTASSIUM CHLORIDE 20 MEQ POWDER PACKET NG SCH (11:30)
[2025-09-06] MEDS: NOREPINEPHRINE 8 MG in IV NS 0.9% 242 ML IV PRN (14:19)
[2025-09-06 14:53] LABS: LYMPHOCYTES % (MANUAL) 15 % (16-48); MONOCYTES % (MANUAL) 5 % (0-11.0); NEUTROPHILS % (MANUAL) 80 (42-76); PLATELET ESTIMATE ADEQUATE
[2025-09-06] MEDS: PHENYLEPHRINE 100 MG in IV NS 0.9% 240 ML IV PRN (15:41)
[2025-09-06 16:28] LABS: CALCIUM, SERUM 7.9 mg/dL (8.5-10.1); CREATININE 1.3 mg/dL (0.6-1.3); SODIUM SERUM 143.0 mmol/L (136-145); UREA NITROGEN, BLOOD 31.0 mg/dL (7-18)
[2025-09-07] VITALS (17 sets, daily range): BP systolic 0–150; BP diastolic 0–80; TEMP 96.5–97.9; O2SAT 69–100
[2025-09-07 04:43] LABS: PLATELET COUNT (AUTO) 280 K/uL (150-450); RED BLOOD CELL COUNT(AUTO) 2.52 MIL/uL (4.5-6.0); RED CELL DISTRIBUTION WIDTH 17.9 % (11.5-15.0); WHITE BLOOD COUNT (AUTO) 15.6 K/uL (4.3-11.0)
[2025-09-07 05:03] LABS: CALCIUM, SERUM 8.7 mg/dL (8.5-10.1); CREATININE 2.2 mg/dL (0.6-1.3); PHOSPHORUS 7.6 mg/dL (2.5-4.9); SODIUM SERUM 141 mmol/L (136-145); TOTAL PROTEIN, SERUM 4.5 g/dL (6.4-8.2); UREA NITROGEN, BLOOD 34 mg/dL (7-18)
[2025-09-07 05:19] LABS: ASPARTATE AMINOTRANSFERASE < 5 U/L (15-37)
[2025-09-07 05:55] LABS: LYMPHOCYTES % (MANUAL) 14 % (16-48); MONOCYTES % (MANUAL) 4 % (0-11.0)
[2025-09-07 05:56] LABS: NEUTROPHILS % (MANUAL) 81 (42-76); NUCLEATED RED BLOOD CELLS 4.0 /100WBC (0.0-0.0); PLATELET ESTIMATE ADEQUATE
[2025-09-07] MEDS ORDERED: CALCIUM CHLORIDE 1,000 MG/10 ML DISP.SYRIN IV ONE (06:33)
[2025-09-07] MEDS ORDERED: EPINEPHRINE (1:10,000) SYRINGE 1 MG/10 ML DISP.SYRIN IVP ONE (06:33)
[2025-09-08 03:07] LABS: PTH, INTACT 34 pg/mL (15-65)
== END 2025-09-07 06:34 | DRG 871 ==
LOC: ER 14:55 → TELE 18:14 → ICU 09-06 08:01
PROVIDERS: ADMIT Registered Nurse Psychiatric/Mental Health; ATTEND Nurse Practitioner Family
PROC: 5A1935Z Respiratory Ventilation, Less than 24 Consecutive Hours (ICD-10-PCS; principal; 2025-09-06)
PROC: 0BH18EZ Insertion of Endotracheal Airway into Trachea, Via Natural or Artificial Opening Endoscopic (ICD-10-PCS; 2025-09-06)
PROC: 02HV33Z Insertion of Infusion Device into Superior Vena Cava, Percutaneous Approach (ICD-10-PCS; 2025-09-06)
PROC: 5A12012 Performance of Cardiac Output, Single, Manual (ICD-10-PCS; 2025-09-06)
PROC: 5A2204Z Restoration of Cardiac Rhythm, Single (ICD-10-PCS; 2025-09-06)
PROC: 5A12012 Performance of Cardiac Output, Single, Manual (ICD-10-PCS; 2025-09-07)
DX: A41.9 Sepsis, unspecified organism (principal); I21.A1 Myocardial infarction type 2; J69.0 Pneumonitis due to inhalation of food and vomit; N17.0 Acute kidney failure with tubular necrosis; J96.00 Acute respiratory failure, unspecified whether with hypoxia or hypercapnia; D62 Acute posthemorrhagic anemia; K92.2 Gastrointestinal hemorrhage, unspecified; E44.0 Moderate protein-calorie malnutrition; E87.1 Hypo-osmolality and hyponatremia; E87.20 Acidosis, unspecified; K56.7 Ileus, unspecified; A09 Infectious gastroenteritis and colitis, unspecified; F02.83 Dementia in other diseases classified elsewhere, unspecified severity, with mood disturbance; I48.91 Unspecified atrial fibrillation; R65.20 Severe sepsis without septic shock; Z95.2 Presence of prosthetic heart valve; Z79.01 Long term (current) use of anticoagulants; E88.09 Other disorders of plasma-protein metabolism, not elsewhere classified; E78.5 Hyperlipidemia, unspecified; E87.6 Hypokalemia; Z66 Do not resuscitate; I46.2 Cardiac arrest due to underlying cardiac condition; I11.9 Hypertensive heart disease without heart failure; I25.10 Atherosclerotic heart disease of native coronary artery without angina pectoris; I49.01 Ventricular fibrillation; Z68.20 Body mass index [BMI] 20.0-20.9, adult; E86.9 Volume depletion, unspecified; D64.9 Anemia, unspecified; E83.89 Other disorders of mineral metabolism; K56.41 Fecal impaction; R13.10 Dysphagia, unspecified; R62.7 Adult failure to thrive; D72.829 Elevated white blood cell count, unspecified; F25.9 Schizoaffective disorder, unspecified; F31.9 Bipolar disorder, unspecified; Z87.440 Personal history of urinary (tract) infections; M81.0 Age-related osteoporosis without current pathological fracture; G20.A1 Parkinson's disease without dyskinesia, without mention of fluctuations
CPT/HCPCS: 31720; 36415; 36600; 70450-TC; 71045-TC; 76770-TC; 80048-TC; 80053-TC; 80076-TC; 81001; 82140-TC; 82550-TC; 82570-TC; 82803-TC; 82962-TC; 83605-TC; 83735-TC; 83880; 83970; 84100-TC; 84155; 84165; 84300-TC; 84443-TC; 84484-TC; 85025-TC; 85027-TC; 86850-TC; 87040-TC; 87070-TC; 87081-TC; 87205-TC; 92950-TC; 94002-TC; 94003-TC; 94799-TC; A4223; G0378; G0480; J0169; J0282; J1650; J2470; J2543; J3373; J3475; J3480; J3490; J7030; J7040; J7050; J7060